=== PATIENT | female | born 1970 | race African-American/Black ===

== ENCOUNTER → 2016-11-25 | Outpatient (CLI) | payer OTHER ==
--- NOTE | 2016-11-25 11:15 | WOMENS IMAGING REPORT ---
EXAM DESCRIPTION: 3D SCREENING MAMMO BILAT COMPLETED DATE/TIME: 11/25/2016 10:47 am REASON FOR STUDY: SCREENING MAMMO Z12.31 ENCNTR SCREEN MAMMOGRAM FOR MALIGNANT NEOPLASM OF YOANA COMPARISON: 2010, 2015 TECHNIQUE: Standard craniocaudal and mediolateral oblique views of each breast recorded using digita l acquisition and breast tomosynthesis. LIMITATIONS: None. FINDINGS: No masses, calcifications or architectural distortion. No areas of suspicion. Read with the assistance of CAD. .[facility] - R2 Cenova Version 1.3 .[facility] - R2 Cenova Version 1.3 .[facility] - R2 Cenova Version 2.4 .[facility] [place] R2 Cenova Version 2.4 .[facility] - R2 Shaker Out Version 9.2 IMPRESSION: NORMAL MAMMOGRAM. BIRADS 1. BREAST DENSITY: b. There are scattered areas of fibroglandular density. BIRAD: 1 NEGATIVE RECOMMENDATION: ROUTINE SCREENING COMMENT: The patient has been notified of the results by letter per SA requirements. Additional no tification policies are in place for contacting patient with suspicious or incomplete findings. Quality ID #[id number]: The [employer] recommends an annual screening mammogram for women aged 40 years or over. This facility utilizes a reminder system to ensure that all patients receive reminder letters, and/or direct phone calls for appointments. This includes reminders for routine scr eening mammograms, diagnostic mammograms, or other Breast Imaging Interventions when appropriate. Th is patient will be placed in the appropriate reminder system. The [employer] (ACR) has developed recommendations for screening MRI of the breast s in certain patient populations, to be used in conjunction with mammography. Breast MRI surveillanc e may be appropriate for women with more than 20% lifetime risk of developing breast cancer as deter mined by genetic testing, significant family history of the disease, or history of mantle radiation f or Hodgkins Disease. ACR Practice Guidelines 2008. DBT Technology DBT is a type of tomographic mammography. With conventional mammography, overlapping breast tissue ma y make lesions difficult to detect, even with good compression. DBT uses an x-ray tube that rotates a round the breast, taking images at different angles. These images are then combined to create thin sl ices of the breast that the radiologist can view as a 3D reconstruction. The [facility]attle unit can perform full-field digital mammograms (2D imaging); or DBT (3D imaging); or both, in a combination mode that quickly performs both the mammogram and the tomosynthesis scan while the breast is still compressed. PQRS 6045F: Fluoroscopic imaging is not utilized for breast tomosynthesis. TECHNICAL DOCUMENTATION: FINDING NUMBER: (1) ASSESSMENT: (1) JOB ID: [id number] [employer]- All Rights Reserved
== END ==
LOC: WI 10:33
PROVIDERS: ATTEND Family Medicine
DX: Z12.31 Encounter for screening mammogram for malignant neoplasm of breast (principal)
CPT/HCPCS: 77063; G0202; 77067

== ENCOUNTER → 2017-02-24 | Outpatient (CLI) | payer OTHER ==
[2017-02-24 10:14] LABS: ALANINE AMINOTRANSFERASE 37 U/L (9-52); ALBUMIN 3.6 g/dL (3.5-5.0); ALKALINE PHOSPHATASE 64 U/L (38-126); ASPARTATE AMINO TRANSFERASE 26 U/L (14-36); BILIRUBIN,DIRECT 0.1 mg/dL (0.0-0.4); BILIRUBIN,TOTAL 0.3 mg/dL (0.2-1.3); TOTAL PROTEIN 6.8 g/dL (6.3-8.2)
== END ==
LOC: OD 08:50
PROVIDERS: ATTEND Internal Medicine Gastroenterology
DX: K74.3 Primary biliary cirrhosis (principal)
CPT/HCPCS: 36415; 80076

== ENCOUNTER → 2017-03-05 | Outpatient (CLI) | payer OTHER ==
--- NOTE | 2017-03-05 09:39 | RADIOLOGY REPORT (SQ) ---
EXAM DESCRIPTION: U/S ABDOMEN LIMITED W/O DOP COMPLETED DATE/TIME: 03/05/2017 9:01 am REASON FOR STUDY: PRIMARY BILIARY CIRRHOSIS (K74.3) K74.3 PRIMARY BILIARY CIRRHOSIS COMPARISON: September 2015 TECHNIQUE: Dynamic and static grayscale images acquired of the abdomen and recorded on PACS. Additio nal selected color Doppler and spectral images recorded. LIMITATIONS: None. FINDINGS: PANCREAS: No masses. Visualized pancreatic duct normal caliber. LIVER: No masses. Echotexture normal. LIVER VASCULATURE: Normal directional flow of the main portal vein and hepatic veins. GALLBLADDER: No stones. Normal wall thickness. No pericholecystic fluid. ULTRASOUND-DETECTED SUTTON'S SIGN: Negative. INTRAHEPATIC DUCTS AND COMMON DUCT: Normal blood flow is identified in the portal vein. INFERIOR VENA CAVA: Normal flow. AORTA: No aneurysm. RIGHT KIDNEY: 10.3 cm in length. Normal echogenicity. No solid or suspicious masses. No hydronephros is. No calcifications. PERITONEAL AND RIGHT PLEURAL SPACE: No ascites or effusions. OTHER: No other significant findings. IMPRESSION: NORMAL RIGHT UPPER QUADRANT ULTRASOUND. TECHNICAL DOCUMENTATION: JOB ID: [id number] [employer]- All Rights Reserved
== END ==
LOC: RAD 08:25
PROVIDERS: ATTEND Internal Medicine Gastroenterology
DX: K74.3 Primary biliary cirrhosis (principal)
CPT/HCPCS: 76705

== ENCOUNTER 2017-11-01 08:49 | Inpatient (IN) | payer OTHER ==
--- NOTE | 2017-11-01 09:36 | ER Document Report ---
ED Medical Screen (RME) - General Chief Complaint: Shortness Of Breath Stated Complaint: DIFFICULTY BREATHING Time Seen by Provider: 11/01/17 09:34 Notes: 47-year-old female patient to the emergency department chief complaint shortness of breath. Patient states that she is predisposed to blood clots. Does not smoke. Wears a CPAP at night. I have greeted and performed a rapid initial assessment of this patient. A comprehensive ED assessment and evaluation of the patient, analysis of test results and completion of the medical decision making process will be conducted by additional ED providers. TRAVEL OUTSIDE OF THE [place] IN LAST 30 DAYS: No - Related Data Allergies/Adverse Reactions: No Known Allergies Allergy (Verified 11/01/17 08:50) Past Medical History Past Surgical History: Reports: Hx Section - x2 - Immunizations Hx Diphtheria, Pertussis, Tetanus Vaccination: Yes Physical Exam - Vital signs Vitals: Temp Pulse Resp BP Pulse Ox 97.6 F 90 32 H 128/73 H 82 L 11/01/17 08:56 11/01/17 08:56 11/01/17 08:56 11/01/17 08:56 11/01/17 08:56 Interpretation: Tachycardic - Respiratory Respiratory status: No respiratory distress Chest status: Nontender Breath sounds: Normal Chest palpation: Normal - Cardiovascular Rhythm: Tachycardia Heart sounds: Normal auscultation Murmur: No Course - Vital Signs Vital signs: Temp Pulse Resp BP Pulse Ox 97.6 F 90 32 H 128/73 H 82 L 11/01/17 08:56 11/01/17 08:56 11/01/17 08:56 11/01/17 08:56 11/01/17 08:56 - Laboratory Result Diagrams: 11/01/17 09:26 11/01/17 09:26 Doctor's Discharge - Discharge Referrals: HOMER JAMES MD [Primary Care Provider] - Follow up as needed
[2017-11-01 09:45] LABS: ABSOLUTE LYMPHOCYTES (AUTO) 0.8 10^3/uL (0.5-4.7); ABSOLUTE MONOCYTES (AUTO) 0.6 10^3/uL (0.1-1.4); ABSOLUTE NEUT (AUTO) 3.7 10^3/uL (1.7-8.2); BASOPHILS % (AUTO) 0.8 % (0-2); EOSINOPHILS % (AUTO) 0.1 % (0-6); HEMATOCRIT 28.4 % (36.0-47.0); HEMOGLOBIN 9.2 g/dL (12.0-15.5); LYMPHOCYTES % (AUTO) 15.4 % (13-45); MEAN CORPUSCULAR HEMOGLOBIN 24.9 pg (27.0-33.4); MEAN CORPUSCULAR HGB CONC 32.4 g/dL (32.0-36.0); MEAN CORPUSCULAR VOLUME 77 fl (80-97); MONOCYTES % (AUTO) 11.4 % (3-13); PLATELET COUNT 136 10^3/uL (150-450); RED CELL DISTRIBUTION WIDTH 15.5 % (11.5-14.0); SEGMENTED NEUTROPHILS % (AUTO) 72.3 % (42-78); TOTAL CELLS COUNTED % (AUTO) 100 %; VENOUS BLOOD BASE EXCESS -3.5 mmol/L; VENOUS BLOOD HCO3 21.5 mmol/L (20-32); VENOUS BLOOD PCO2 38.3 mmHg (35-63); VENOUS BLOOD PH 7.37 (7.30-7.42); WHITE BLOOD COUNT 5.1 10^3/uL (4.0-10.5)
--- NOTE | 2017-11-01 09:59 | ER Document Report ---
ED General - General Chief Complaint: Shortness Of Breath Stated Complaint: DIFFICULTY BREATHING Time Seen by Provider: 11/01/17 09:34 TRAVEL OUTSIDE OF THE [place] IN LAST 30 DAYS: No - HPI Notes: 47-year-old female with comp gated medical history including mixed connective tissue disease, primary biliary cirrhosis who presents with difficulty in breathing and hypoxemia. Patient describes several days of increasingly severe dyspnea, especially with exertion as well as cough, nonproductive. She had transient "cramp" in her right medial thigh. Indicates that she is " predisposed blood clots but cannot specify a specific disease. She denies any associated chest pain, no fever. No unplanned weight loss, non-smoker. Gradual onset. Nonradiating. No other modifying factors, no other associated symptoms, no other provocative or palliative factors. - Related Data Allergies/Adverse Reactions: No Known Allergies Allergy (Verified 11/01/17 08:50) Past Medical History - General Information source: Patient - Social History Smoking Status: Never Smoker Drug Abuse: None - Medical History Notes: Includes primary biliary cirrhosis, mixed connective tissue disease, otherwise has reviewed nursing notes Past Surgical History: Reports: Hx Section - x2 - Immunizations Hx Diphtheria, Pertussis, Tetanus Vaccination: Yes Review of Systems - Review of Systems Notes: Review of systems as in history of present illness, otherwise no significant headache, chest pain, abdominal pain. Physical Exam - Vital signs Vitals: Temp Pulse Resp BP Pulse Ox 97.6 F 90 32 H 128/73 H 82 L 11/01/17 08:56 11/01/17 08:56 11/01/17 08:56 11/01/17 08:56 11/01/17 08:56 - Notes Notes: General: Well developed . HEENT: Normocephalic, atraumatic. Pupils equal round reactive to light. No JVD. Chest: No trauma. Respiratory: Good air exchange, coarse but normal excursion. No crackles. Cardiac: Regular rhythm. No murmurs or gallops. Abdomen: Soft, benign. Nondistended. Nontender. Back: No asymmetry or gross abnormality. Motor: Grossly normal power and tone. Neurologic: Alert, nonfocal. Cranial nerves II-12 are intact. Sensation intact. Vascular: Well perfused. Normal peripheral pulses. Skin: No petechiae or purpura. Course - Re-evaluation Re-evalutation: 11/01/17 09:59 47-year-old female with the after mentioned symptoms. Consider underlying pneumonia, pulmonary embolism, pneumothorax, less likely heart failure is anginal equivalent. Will proceed with laboratory evaluation, EKG, x-ray given d -dimer evaluation. Reassess. 11/01/17 13:12 Labs reviewed, CBC unremarkable with the exception of chronic anemia. Platelets show mild to moderate thrombocytopenia. Chemistries unremarkable. D- dimer markedly elevated. Patient's chest x-ray is obtained and read right middle lobe infiltrate. However, patient has really minimal dry cough, and does have associated symptoms that suggest the possibility of venous thromboembolic disease. In light of this, I elected proceed with CT imaging. CTAs discussed with the radiologist there is extensive bilateral pulmonary embolism. No evidence of RV strain. Patient remains with a oxygen requirement. Case discussed with the primary care physician, Dr. Schuster. Dr. Schuster is requested initiation of Eliquis which the patient has been given. Otherwise remains hemodynamically stable in the emergency department. - Vital Signs Vital signs: Temp Pulse Resp BP Pulse Ox 97.6 F 90 29 H 123/73 92 11/01/17 08:56 11/01/17 08:56 11/01/17 12:00 11/01/17 11:01 11/01/17 12:00 - Laboratory Result Diagrams: 11/01/17 09:26 11/01/17 09:26 Laboratory results interpreted by me: 11/01/17 11/01/17 11/01/17 09:26 09:26 09:26 RBC 3.70 L Hgb 9.2 L Hct 28.4 L MCV 77 L MCH 24.9 L RDW 15.5 H Plt Count 136 L D-Dimer Carbon Dioxide 21 L AST 37 H Ammonia < 8.7 L 11/01/17 09:26 RBC Hgb Hct MCV MCH RDW Plt Count D-Dimer 7.32 H Carbon Dioxide AST Ammonia Discharge - Discharge Clinical Impression: Pulmonary embolism Qualifiers: Pulmonary embolism type: other Chronicity: acute Acute cor pulmonale presence: without acute cor pulmonale Qualified Code(s): I26.99 - Other pulmonary embolism without acute cor pulmonale Condition: Good Disposition: ADMITTED INPATIENT Admitting Provider: [facility] Admitted: Telemetry Referrals: HOMER JAMES MD [ACTIVE STAFF] - Follow up as needed
[2017-11-01 10:11] LABS: ALANINE AMINOTRANSFERASE 32 U/L (9-52); ALBUMIN 3.6 g/dL (3.5-5.0); ALKALINE PHOSPHATASE 94 U/L (38-126); ANION GAP 14 (5-19); ASPARTATE AMINO TRANSFERASE 37 U/L (14-36); BILIRUBIN,DIRECT 0.1 mg/dL (0.0-0.4); BILIRUBIN,TOTAL 0.2 mg/dL (0.2-1.3); BLOOD UREA NITROGEN 11 mg/dL (7-20); CALCIUM 8.6 mg/dL (8.4-10.2); CARBON DIOXIDE 21 mmol/L (22-30); CHLORIDE 105 mmol/L (98-107); CREATINE KINASE 128 U/L (30-135); GLUCOSE 105 mg/dL (75-110); POTASSIUM 3.8 mmol/L (3.6-5.0); SODIUM 139.7 mmol/L (137-145); TOTAL PROTEIN 7.9 g/dL (6.3-8.2)
[2017-11-01 10:23] LABS: CREATINE KINASE MB 1.69 ng/mL (<4.55)
--- NOTE | 2017-11-01 10:28 | RADIOLOGY REPORT (SQ) ---
EXAM DESCRIPTION: CHEST SINGLE VIEW COMPLETED DATE/TIME: 11/01/2017 10:04 am REASON FOR STUDY: sob COMPARISON: 03/17/2012. EXAM PARAMETERS: NUMBER OF VIEWS: One view. TECHNIQUE: Single frontal radiographic view of the chest acquired. RADIATION DOSE: NA LIMITATIONS: None. FINDINGS: LUNGS AND PLEURA: Airspace consolidation right upper lobe. Otherwise, lung james clear. MEDIASTINUM AND HILAR STRUCTURES: No masses. Contour normal. HEART AND VASCULAR STRUCTURES: The heart is normal. The pulmonary vasculature is normal. BONES: No acute findings. HARDWARE: None in the chest. OTHER: No other significant finding. IMPRESSION: Right upper lobe pneumonia. TECHNICAL DOCUMENTATION: JOB ID: [id number] SC-69 2010 [employer]- All Rights Reserved Reading location - IP/workstation name: [email or web address]
[2017-11-01 10:31] LABS: TROPONIN I 0.049 ng/mL
--- NOTE | 2017-11-01 10:46 | EKG REPORT ---
SEVERITY:- BORDERLINE ECG - SINUS RHYTHM BORDERLINE T WAVE ABNORMALITIES : Confirmed by: Gamaliel Mathews 01-Nov-2017 10:46:10
--- NOTE | 2017-11-01 12:26 | RADIOLOGY REPORT (SQ) ---
EXAM DESCRIPTION: CTA CHEST COMPLETED DATE/TIME: 11/01/2017 11:42 am REASON FOR STUDY: Eval for PE COMPARISON: None. TECHNIQUE: CT scan of the chest performed using helical scanning technique with dynamic intravenous contrast injection. Images reviewed with lung, soft tissue and bone windows. Reconstructed coronal and sagittal MPR images reviewed. Additional 3 dimensional post-processing performed to develop Maximal Intensity Projection images (LA P). All images stored on PACS. All CT scanners at this facility use dose modulation, iterative reconstruction, and/or weight based d osing when appropriate to reduce radiation dose to as low as reasonably achievable (ALARA). [facility]: Dose Right [facility]: CareDose [facility]: Dose Right [facility]: Teradose 4D [facility]: Piehole CONTRAST TYPE AND DOSE: contrast/concentration: Isovue 350.00 mg/ml; Total Contrast Delivered: 81.0 ml; Total Saline Delivered: 110.0 ml Contrast bolus optimized for the pulmonary arteries. Not diagnostic for the aorta. RENAL FUNCTION: Creatinine: 0.78 RADIATION DOSE: CT Rad equipment meets quality standard of care and radiation dose reduction techniq ues were employed. CTDIvol: 23.4 - 46.3 mGy. DLP: 830 mGy-cm. . LIMITATIONS: None. FINDINGS: LUNGS AND PLEURA: Extensive consolidation or infarct in the right upper lobe. Consolidati on or infarct right lower lobe. Consolidation medial segment right middle lobe. AORTA AND GREAT VESSELS: No aneurysm. Contrast bolus not optimized for the aorta. HEART: No pericardial effusion. No significant coronary artery calcifications. PULMONARY ARTERIES: Extensive bilateral pulmonary emboli extending from right and left main pulmonary emboli into upper lobe, right middle lobe, and lower lobe vessels. HILAR AND MEDIASTINAL STRUCTURES: There is evidence of small anterior mediastinal, pretracheal nodes. Scattered axillary nodes. HARDWARE: None in the chest. UPPER ABDOMEN: The liver, spleen, adrenals demonstrate no abnormality. THYROID AND OTHER SOFT TISSUES: No abnormality. BONES: Minimal dorsal spondylosis. 3D MIPS: Confirm above findings. IMPRESSION: Extensive bilateral pulmonary emboli. There is evidence of significant consolidation or infarct within the right upper lobe,right lower lobe ,and minimal infiltrate or consolidation right middle lobe. COMMENT: Dr. Pozo given report by phone at 1200 hours. Quality ID # [id number]: Final reports with documentation of one or more dose reduction techniques (e.g., Au tomated exposure control, adjustment of the mA and/or kV according to patient size, use of iterative reconstruction technique) TECHNICAL DOCUMENTATION: JOB ID: [id number] SC-69 2010 [employer]- All Rights Reserved Reading location - IP/workstation name: [email or web address]
[2017-11-01] MEDS ORDERED: APIXABAN 5 MG TABLET PO ONE (12:54)
[2017-11-01 13:21] LABS: INTERNATIONAL RATION (INR) 0.93; PROTHROMBIN TIME 12.9 SEC (11.4-15.4)
[2017-11-01 16:00] LABS: TROPONIN I 0.079 ng/mL
--- NOTE | 2017-11-01 20:11 | PDOC H&P ---
History of Present Illness Admission Date/PCP: 11/01/17 14:11 MILA CAICEDO MD Patient complains of: 1w pandey History of Present Illness: ZANE PEREZ is a 47 year old female with primary biliary cirrhosis, mixed connective tissue disease, sicca, itp, protein C&S deficiencies, membranous nephritis, and nephrosis with 1w progressive pandey. In ER Ddimer & cta + for multiple pe. Past Medical History Cardiac Medical History: Reports: Hyperlipidema Pulmonary Medical History: Reports: Sleep Apnea EENT Medical History: Reports: Nose - rhinitis Neurological Medical History: Reports: Migraine Endocrine Medical History: Reports: None Renal/ Medical History: Reports: Chronic Kidney Disease Malignancy Medical History: Reports: None GI Medical History: Reports: Cirrhosis, Gastroesophageal Reflux Disease Musculoskeltal Medical History: Reports: Arthritis - low back Psychiatric Medical History: Reports: Depression Traumatic Medical History: Reports: None Hematology: Reports: Anemia Infectious Medical History: Reports: None Past Surgical History Past Surgical History: Reports: Section - x2 Social History Information Source: Office Lives with: Family Smoking Status: Never Smoker Frequency of Alcohol Use: None Hx Recreational Drug Use: No Drugs: None Hx Prescription Drug Abuse: No - Advance Directive Resuscitation Status: Full Code Family History Family History: Arthritis, DM, Hypertension Parental Family History Reviewed: Yes Children Family History Reviewed: Yes Sibling(s) Family History Reviewed.: Yes Medication/Allergy Allergies/Adverse Reactions: No Known Allergies Allergy (Verified 11/01/17 08:50) Review of Systems Constitutional: ABSENT: fever(s), headache(s), weight loss Nose, Mouth, and Throat: ABSENT: headache(s), sore throat Cardiovascular: PRESENT: dyspnea on exertion. ABSENT: chest pain, orthropnea Respiratory: PRESENT: cough - today only minimal, dyspnea. ABSENT: hemoptysis Gastrointestinal: PRESENT: hematochezia. ABSENT: abdominal pain, constipation, diarrhea, heartburn, vomiting Genitourinary: ABSENT: dysuria, hematuria Musculoskeletal: PRESENT: back pain Integumentary: ABSENT: rash Physical Exam Vital Signs: Temp Pulse Resp BP Pulse Ox 98.2 F 90 20 119/75 93 11/01/17 16:05 11/01/17 16:05 11/01/17 16:05 11/01/17 16:05 11/01/17 16:05 General appearance: PRESENT: no acute distress, obese Mouth exam: PRESENT: moist, neck supple, tongue midline Neck exam: ABSENT: lymphadenopathy, tenderness, thyromegaly, tracheal deviation Respiratory exam: PRESENT: clear to auscultation shaila Cardiovascular exam: ABSENT: diastolic murmur, irregular rhythm, systolic murmur GI/Abdominal exam: ABSENT: mass, organolmegaly, tenderness Extremities exam: ABSENT: pedal edema Neurological exam: PRESENT: oriented to situation Psychiatric exam: PRESENT: appropriate affect Results Laboratory Results: Abnormal - 24 hr 11/01/17 11/01/17 11/01/17 09:26 09:26 09:26 RBC 3.70 L Hgb 9.2 L Hct 28.4 L MCV 77 L MCH 24.9 L RDW 15.5 H Plt Count 136 L D-Dimer Carbon Dioxide 21 L AST 37 H Ammonia < 8.7 L NT-Pro-B Natriuret Pep 11/01/17 11/01/17 09:26 14:59 RBC Hgb Hct MCV MCH RDW Plt Count D-Dimer 7.32 H Carbon Dioxide AST Ammonia NT-Pro-B Natriuret Pep 905 H Impressions: Chest X-Ray 11/01/17 09:35 IMPRESSION: Right upper lobe pneumonia. Chest/Abdomen CTA 11/01/17 11:00 IMPRESSION: Extensive bilateral pulmonary emboli. There is evidence of significant consolidation or infarct within the right upper lobe,right lower lobe ,and minimal infiltrate or consolidation right middle lobe. Assessment & Plan - Diagnosis (1) Other pulmonary embolism without acute cor pulmonale Qualifiers: Chronicity: acute Qualified Code(s): I26.99 - Other pulmonary embolism without acute cor pulmonale Is this a current diagnosis for this admission?: Yes Plan: eliquis doppler (2) Migraine without aura and without status migrainosus, not intractable Is this a current diagnosis for this admission?: Yes (3) Obstructive sleep apnea Is this a current diagnosis for this admission?: Yes Plan: cpap (4) Hemorrhoids Qualifiers: Hemorrhoid type: residual hemorrhoidal skin tags Qualified Code(s): K64.4 - Residual hemorrhoidal skin tags; I84.6 - Residual hemorrhoidal skin tags Is this a current diagnosis for this admission?: Yes Plan: watch for recurrent bleeding. (5) Gastro-esophageal reflux disease without esophagitis Is this a current diagnosis for this admission?: Yes (6) Primary biliary cirrhosis Is this a current diagnosis for this admission?: Yes Plan: Dr Solomon gave ursodiol in past. (8) Membranous nephrosis Is this a current diagnosis for this admission?: Yes Plan: improved. [employer] told see me last year (9) Intramural leiomyoma of uterus Is this a current diagnosis for this admission?: Yes Plan: periods already heavy with clots. LMP 2d ago. (10) Mixed connective tissue disease Is this a current diagnosis for this admission?: Yes (11) Sicca syndrome Is this a current diagnosis for this admission?: Yes (12) Immune thrombocytopenic purpura Is this a current diagnosis for this admission?: Yes Plan: follow platelets. Avoid heparin. (13) Deficiency, protein C Is this a current diagnosis for this admission?: Yes (14) Anemia in other chronic diseases classified elsewhere Is this a current diagnosis for this admission?: Yes Plan: iron studies - Inpatient Certification Based on my medical assessment, after consideration of the patient's comorbidities, presenting symptoms, or acuity I expect that the services needed warrant INPATIENT care.: Yes Medical Necessity: Significant Comorbidiites Make Outpatient Treatment Too Risky , Need Close Monitoring Due to Risk of Patient Decompensation, Need For Continuous Telemetry Monitoring, Risk of Complication if Not Cared For in Hospital, Risk of Diagnosis Which Will Require Inpatient Eval/Care/Monitoring
[2017-11-01 20:57] LABS: ABSOLUTE RETICS # 0.085 10^6/uL (0.028-0.122); RETICULOCYTE COUNT (AUTO) 2.27 % (0.66-2.85)
[2017-11-01] MEDS: APIXABAN 5 MG TABLET PO SCH (22:03)
[2017-11-02] MEDS ORDERED: IRON SUCROSE COMPLEX INJ/PF 100 MG/5 ML SDV IV ONE (06:02)
--- NOTE | 2017-11-02 07:06 | PDOC PROGRESS REPORT ---
Subjective Progress Note for:: 11/02/17 Subjective:: less dyspnea. Off iron & ursodiol. Reason For Visit: PULMONARY EMBOLISM Physical Exam Vital Signs: Temp Pulse Resp BP Pulse Ox 97.8 F 87 22 H 122/65 98 11/02/17 03:02 11/02/17 03:02 11/02/17 03:02 11/02/17 03:02 11/02/17 03:02 Intake & Output 10/31/17 11/01/17 11/02/17 07:59 07:59 07:59 Weight 233 lb 0.458 oz General appearance: PRESENT: no acute distress Respiratory exam: PRESENT: clear to auscultation shaila Cardiovascular exam: ABSENT: diastolic murmur, irregular rhythm, systolic murmur GI/Abdominal exam: ABSENT: mass, organolmegaly, tenderness Extremities exam: ABSENT: pedal edema Neurological exam: PRESENT: oriented to situation Psychiatric exam: PRESENT: appropriate affect Results Laboratory Results: 11/01/17 14:59 Iron 12.0 L TIBC 404 % Saturation 3 Ferritin 10.10 Vitamin B12 710.0 Folate 18.30 11/01/17 14:59 Troponin I 0.079 NT-Pro-B Natriuret Pep 905 H Impressions: Chest X-Ray 11/01/17 09:35 IMPRESSION: Right upper lobe pneumonia. Chest/Abdomen CTA 11/01/17 11:00 IMPRESSION: Extensive bilateral pulmonary emboli. There is evidence of significant consolidation or infarct within the right upper lobe,right lower lobe ,and minimal infiltrate or consolidation right middle lobe. Assessment & Plan - Diagnosis (1) Other pulmonary embolism without acute cor pulmonale Qualifiers: Chronicity: acute Qualified Code(s): I26.99 - Other pulmonary embolism without acute cor pulmonale Is this a current diagnosis for this admission?: Yes Plan: eliquis 10bid 1w then 5bid. Education. (2) Migraine without aura and without status migrainosus, not intractable Is this a current diagnosis for this admission?: Yes (3) Obstructive sleep apnea Is this a current diagnosis for this admission?: Yes Plan: slept with cpap (4) Hemorrhoids Qualifiers: Hemorrhoid type: residual hemorrhoidal skin tags Qualified Code(s): K64.4 - Residual hemorrhoidal skin tags; I84.6 - Residual hemorrhoidal skin tags Is this a current diagnosis for this admission?: Yes Plan: told to watch for bleeding (5) Gastro-esophageal reflux disease without esophagitis Is this a current diagnosis for this admission?: Yes Plan: prevacid (6) Primary biliary cirrhosis Is this a current diagnosis for this admission?: Yes Plan: ursodiol (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 (8) Membranous nephrosis Is this a current diagnosis for this admission?: Yes (9) Intramural leiomyoma of uterus Is this a current diagnosis for this admission?: Yes Plan: pray for menopause. Age47. 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 Underlies thrombophillia (14) Anemia in other chronic diseases classified elsewhere Is this a current diagnosis for this admission?: Yes Plan: venofer - Inpatient Certification Medical Necessity: Significant Comorbidiites Make Outpatient Treatment Too Risky , Need Close Monitoring Due to Risk of Patient Decompensation, Need For Continuous Telemetry Monitoring, Risk of Complication if Not Cared For in Hospital, Risk of Diagnosis Which Will Require Inpatient Eval/Care/Monitoring
[2017-11-02] MEDS ORDERED: IRON SUCROSE COMPLEX 500 MG in NORMAL SALINE 250 ML IV ONE (09:00)
[2017-11-02] MEDS: FERROUS SULFATE 325 MG TABLET PO SCH (10:19)
[2017-11-02] MEDS: URSODIOL 300 MG CAPSULE PO SCH ×2 (10:20→17:32)
[2017-11-02] MEDS: APIXABAN 5 MG TABLET PO SCH ×2 (10:20→22:38)
--- NOTE | 2017-11-03 07:42 | PDOC PROGRESS REPORT ---
Subjective Progress Note for:: 11/03/17 Subjective:: less dyspnea but still on walking to bathroom. Period heavier than usual. Reason For Visit: PULMONARY EMBOLISM Physical Exam Vital Signs: Temp Pulse Resp BP Pulse Ox 98.4 F 91 16 100/66 99 11/03/17 03:59 11/03/17 03:59 11/03/17 03:59 11/03/17 03:59 11/03/17 03:59 Intake & Output 11/01/17 11/02/17 11/03/17 07:59 07:59 07:59 Intake Total 1150 Balance 1150 Weight 233 lb 0.458 oz 229 lb 8.019 oz General appearance: PRESENT: no acute distress Respiratory exam: PRESENT: clear to auscultation shaila Cardiovascular exam: PRESENT: systolic murmur. ABSENT: diastolic murmur, irregular rhythm Murmur grade: 2 GI/Abdominal exam: PRESENT: organolmegaly - suprapubic 7cm. ABSENT: tenderness Extremities exam: ABSENT: pedal edema Neurological exam: PRESENT: oriented to situation Psychiatric exam: PRESENT: appropriate affect Results Laboratory Results: 11/01/17 14:59 Troponin I 0.079 NT-Pro-B Natriuret Pep 905 H Impressions: Chest X-Ray 11/01/17 09:35 IMPRESSION: Right upper lobe pneumonia. Chest/Abdomen CTA 11/01/17 11:00 IMPRESSION: Extensive bilateral pulmonary emboli. There is evidence of significant consolidation or infarct within the right upper lobe,right lower lobe ,and minimal infiltrate or consolidation right middle lobe. Assessment & Plan - Diagnosis (1) Other pulmonary embolism without acute cor pulmonale Qualifiers: Chronicity: acute Qualified Code(s): I26.99 - Other pulmonary embolism without acute cor pulmonale Is this a current diagnosis for this admission?: Yes Plan: FIO2 down to 4L: sat99. Consult Dr Stafford. (2) Migraine without aura and without status migrainosus, not intractable Is this a current diagnosis for this admission?: Yes (3) Obstructive sleep apnea Is this a current diagnosis for this admission?: Yes (4) Hemorrhoids Qualifiers: Hemorrhoid type: residual hemorrhoidal skin tags Qualified Code(s): K64.4 - Residual hemorrhoidal skin tags; I84.6 - Residual hemorrhoidal skin tags Is this a current diagnosis for this admission?: Yes (5) Gastro-esophageal reflux disease without esophagitis Is this a current diagnosis for this admission?: Yes (6) Primary biliary cirrhosis Is this a current diagnosis for this admission?: Yes (7) 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 Is this a current diagnosis for this admission?: Yes (8) Membranous nephrosis Is this a current diagnosis for this admission?: Yes (9) Intramural leiomyoma of uterus Is this a current diagnosis for this admission?: Yes (10) Mixed connective tissue disease Is this a current diagnosis for this admission?: Yes (11) Sicca syndrome Is this a current diagnosis for this admission?: Yes (12) Immune thrombocytopenic purpura Is this a current diagnosis for this admission?: Yes (13) Deficiency, protein C Is this a current diagnosis for this admission?: Yes (14) Anemia in other chronic diseases classified elsewhere Is this a current diagnosis for this admission?: Yes - Inpatient Certification Medical Necessity: Significant Comorbidiites Make Outpatient Treatment Too Risky , Need Close Monitoring Due to Risk of Patient Decompensation, Need For Continuous Telemetry Monitoring, Risk of Complication if Not Cared For in Hospital, Risk of Diagnosis Which Will Require Inpatient Eval/Care/Monitoring
[2017-11-03] MEDS: APIXABAN 5 MG TABLET PO SCH ×2 (09:24→22:05)
[2017-11-03] MEDS: FERROUS SULFATE 325 MG TABLET PO SCH (09:24)
[2017-11-03] MEDS: URSODIOL 300 MG CAPSULE PO SCH ×2 (09:27→18:37)
--- NOTE | 2017-11-03 13:21 | XCELERA REPORT ---
[address] [address] Lower Extremity Venous Evaluation Name: ZANE PEREZ V Age: 47 yrs Gender: Female : 1970 Patient Status: Inpatient Patient Location: [address] [place], [place] [address]A Study Date: 11/03/2017 10:20 AM Procedure: Color flow and duplex imaging bilaterally of the veins of the lower extremities as well as the Common Femoral veins. Reason For Study: pe Ordering Physician: MILA CAICEDO Performed By: Tawana Saldana Right Sided Venous Evaluation Abnormal vessel filling wall to wall, no compression or augmentation no Colour flow in the Popliteal vein. Echogenic content. Otherwise normal . Left Sided Venous Evaluation Normal vessel filling wall to wall, compression and augmentation as well as Colour flow down to the infrageniculate veins. Interpretation Summary Chronic DVT in the right Popliteal vein. In this patient on Elaquis for Pulmonary embolism. : MILA CAICEDO [place]
--- NOTE | 2017-11-04 07:01 | PDOC PROGRESS REPORT ---
Subjective Progress Note for:: 11/04/17 Subjective:: less pandey Reason For Visit: PULMONARY EMBOLISM Physical Exam Vital Signs: Temp Pulse Resp BP Pulse Ox 98.9 F 94 20 115/69 100 11/04/17 03:32 11/04/17 03:32 11/04/17 03:32 11/04/17 03:32 11/04/17 03:32 Intake & Output 11/02/17 11/03/17 11/04/17 07:59 07:59 07:59 Intake Total 1150 2760 Balance 1150 2760 Weight 233 lb 0.458 oz 229 lb 8.019 oz 236 lb 5.369 oz General appearance: PRESENT: no acute distress Respiratory exam: PRESENT: clear to auscultation shaila Cardiovascular exam: ABSENT: diastolic murmur, irregular rhythm, systolic murmur Murmur grade: 2 GI/Abdominal exam: ABSENT: mass, organolmegaly, tenderness Extremities exam: ABSENT: calf tenderness, pedal edema Neurological exam: PRESENT: oriented to situation Psychiatric exam: PRESENT: appropriate affect Results Laboratory Results: 11/01/17 14:59 Troponin I 0.079 NT-Pro-B Natriuret Pep 905 H Impressions: Chest X-Ray 11/01/17 09:35 IMPRESSION: Right upper lobe pneumonia. Chest/Abdomen CTA 11/01/17 11:00 IMPRESSION: Extensive bilateral pulmonary emboli. There is evidence of significant consolidation or infarct within the right upper lobe,right lower lobe ,and minimal infiltrate or consolidation right middle lobe. Assessment & Plan - Diagnosis (1) Other pulmonary embolism without acute cor pulmonale Qualifiers: Chronicity: acute Qualified Code(s): I26.99 - Other pulmonary embolism without acute cor pulmonale Is this a current diagnosis for this admission?: Yes Plan: 4L [id number]. Home when oxygen weaned. (2) Chronic deep vein thrombosis of right popliteal vein Is this a current diagnosis for this admission?: Yes Plan: doppler + (3) Anemia in other chronic diseases classified elsewhere Is this a current diagnosis for this admission?: Yes (4) Migraine without aura and without status migrainosus, not intractable Is this a current diagnosis for this admission?: Yes (5) Obstructive sleep apnea Is this a current diagnosis for this admission?: Yes (6) Hemorrhoids Qualifiers: Hemorrhoid type: residual hemorrhoidal skin tags Qualified Code(s): K64.4 - Residual hemorrhoidal skin tags; I84.6 - Residual hemorrhoidal skin tags Is this a current diagnosis for this admission?: Yes (7) Gastro-esophageal reflux disease without esophagitis Is this a current diagnosis for this admission?: Yes (8) Primary biliary cirrhosis Is this a current diagnosis for this admission?: Yes (9) 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
[2017-11-04] MEDS: APIXABAN 5 MG TABLET PO SCH ×2 (11:17→21:27)
[2017-11-04] MEDS: URSODIOL 300 MG CAPSULE PO SCH ×2 (11:17→18:10)
[2017-11-04] MEDS: FERROUS SULFATE 325 MG TABLET PO SCH (11:18)
--- NOTE | 2017-11-04 14:00 | CONSULTATION REPORT E ---
Consultation Report NAME: ZANE PEREZ : 1970 AGE: 47Y DATE: 11/04/2017 324 A TO: VIDYA BRAR M.D. FROM: MILA SCHUSTER M.D. Requesting Physician Patient referred by Dr. Schuster. REASON FOR REFERRAL: Pulmonary embolism, anemia. HISTORY OF PRESENT ILLNESS: The patient is a 47-year-old who I see as an outpatient. She was last seen February of 2017, and during that visit, she was doing well. Her hemoglobin was 12.1, her platelet count was 300, and her serum ferritin was 110. She was supposed to return for followup in about a year. She has recently been doing a lot better. She tells me that she was exercising and lifting weight and was doing well at home up until a few days prior to admission into the hospital she noticed some pain in her lower extremity and sudden onset shortness of breath. She was seen in the emergency room and diagnosed with pulmonary embolism. She has been started on Eliquis and she tells me she is doing a lot better. Her CT of the chest done on November 01 had shown extensive bilateral pulmonary emboli. She had a chest x-ray that suggested a right upper lobe pneumonia. Since admission, she has been doing a lot better. PAST MEDICAL HISTORY: Includes a history of: 1. Primary biliary cirrhosis. 2. Mixed connective tissue disease. 3. She has a history of idiopathic thrombocytopenic purpura. 4. She has protein C and S deficiency. 5. Renal insufficiency, possible nephritis, nephrosis. SOCIAL HISTORY: She does not smoke cigarettes. Has recently improved on her eating habits and has been exercising and has been feeling great. PHYSICAL EXAMINATION: She is a middle-aged woman. She is not acutely ill looking. She was sitting up in bed eating breakfast. She is alert and answers all questions appropriately. LABORATORY: Her labs from November 01: Calcium is 8.6, BUN 11, creatinine 0.7, potassium 3.8, sodium 139.7. She had an elevated D-dimer 7.3. Ferritin was 10, B12 of 710. Chest x-ray November 01: Right upper lobe pneumonia. CTA chest 11/01/2017: Extensive bilateral pulmonary emboli. IMPRESSION AND PLAN: The patient is a 47-year-old with prior underlying multiple medical conditions, including iron deficiency anemia, idiopathic thrombocytopenic purpura. She was seeing a microbiology director for positive PATRICK, history of mixed connective tissue disease with a known protein C and S deficiency, renal insufficiency, presents with pulmonary embolism. I agree with the anticoagulation with Santy. I explained to her that she might need lifelong anticoagulation because of the severity of her pulmonary embolism. Her ferritin in 2017 went up to 110, but her ferritin on this hospitalization was done to 10. I explained that I will see her as an outpatient and repeat her blood work and then decide on if she will need an iron infusion. I will plan on seeing her for followup as an outpatient after she is discharged from the hospital. I thank you for this consultation and allowing me to be part of her care. DICTATING PHYSICIAN: VIDYA BRAR M.D. [id number] PHY#: [id number] ID: [id number] JOB#: [id number] ACCT: [id number] cc:VIDYA BRAR M.D. >
--- NOTE | 2017-11-05 08:07 | PDOC DISCHARGE SUMMARY ---
General - Admit/Disc Date/PCP Admission Date/Primary Care Provider: 11/01/17 14:11 MILA CAICEDO MD Discharge Date: 11/05/17 - Discharge Diagnosis (1) Other pulmonary embolism without acute cor pulmonale Is this a current diagnosis for this admission?: Yes (2) Chronic deep vein thrombosis of right popliteal vein Is this a current diagnosis for this admission?: Yes (3) Anemia in other chronic diseases classified elsewhere Is this a current diagnosis for this admission?: Yes (4) Migraine without aura and without status migrainosus, not intractable Is this a current diagnosis for this admission?: Yes (5) Obstructive sleep apnea Is this a current diagnosis for this admission?: Yes (6) Hemorrhoids Is this a current diagnosis for this admission?: Yes (7) Gastro-esophageal reflux disease without esophagitis Is this a current diagnosis for this admission?: Yes (8) Primary biliary cirrhosis Is this a current diagnosis for this admission?: Yes (9) 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 - Additional Information Resuscitation Status: Full Code Discharge Diet: Regular Discharge Activity: Activity As Tolerated Prescriptions: Apixaban [Eliquis 5 mg Tablet] 10 mg PO Q12 #66 tablet Ferrous Sulfate [Feosol 325 mg Tablet] 325 mg PO DAILY #90 tablet Ursodiol [Actigall 300 mg Capsule] 300 mg PO BID #60 capsule Home Medications: Ergocalciferol (Vitamin D2) [Drisdol 50,000 unit (1.25MG) Capsule] 50,000 unit PO TU@1000 11/02/17 Apixaban [Eliquis 5 mg Tablet] 10 mg PO Q12 #66 tablet 11/05/17 Ferrous Sulfate [Feosol 325 mg Tablet] 325 mg PO DAILY #90 tablet 11/05/17 Ursodiol [Actigall 300 mg Capsule] 300 mg PO BID #60 capsule 11/05/17 History of Present Illness History of Present Illness: ZANE PEREZ is a 47 year old female with primary biliary cirrhosis, mixed connective tissue disease, sicca, itp, protein C&S deficiencies, membranous nephritis, and nephrosis with 1w progressive pandey. In ER Ddimer & cta + for multiple pe. Hospital Course Hospital Course: pandey improved. 21% sat98. Got [id number]. Doppler R dvt. Physical Exam Vital Signs: Temp Pulse Resp BP Pulse Ox 98.6 F 82 18 116/54 L 99 11/05/17 00:23 11/05/17 07:00 11/05/17 00:23 11/05/17 00:23 11/05/17 00:23 Intake & Output 11/04/17 11/05/17 11/06/17 07:59 07:59 07:59 Intake Total 2760 1446 Balance 2760 1446 Weight 236 lb 5.369 oz 234 lb 12.677 oz General appearance: PRESENT: no acute distress Respiratory exam: PRESENT: clear to auscultation shaila Cardiovascular exam: ABSENT: diastolic murmur, irregular rhythm, systolic murmur Murmur grade: 2 GI/Abdominal exam: ABSENT: mass, organolmegaly, tenderness Extremities exam: ABSENT: pedal edema Neurological exam: PRESENT: oriented to situation Psychiatric exam: PRESENT: appropriate affect Results Laboratory Results: Labs- Last Values WBC 5.1 10^3/uL (4.0-10.5) 11/01/17 09:26 RBC 3.70 10^6/uL (3.72-5.28) L 11/01/17 09:26 Hgb 9.2 g/dL (12.0-15.5) L 11/01/17 09:26 Hct 28.4 % (36.0-47.0) L 11/01/17 09:26 MCV 77 fl (80-97) L 11/01/17 09:26 MCH 24.9 pg (27.0-33.4) L 11/01/17 09:26 MCHC 32.4 g/dL (32.0-36.0) 11/01/17 09:26 RDW 15.5 % (11.5-14.0) H 11/01/17 09:26 Plt Count 136 10^3/uL (150-450) L 11/01/17 09: Seg Neutrophils % 72.3 % (42-78) 11/01/17 09: Lymphocytes % 15.4 % (13-45) 11/01/17 09: Monocytes % 11.4 % (3-13) 11/01/17 09: Eosinophils % 0.1 % (0-6) 11/01/17 09: Basophils % 0.8 % (0-2) 11/01/17 09:26 Absolute Neutrophils 3.7 10^3/uL (1.7-8.2) 11/01/17 09: Absolute Lymphocytes 0.8 10^3/uL (0.5-4.7) 11/01/17 09: Absolute Monocytes 0.6 10^3/uL (0.1-1.4) 11/01/17 09: Absolute Eosinophils 0.0 10^3/uL (0.0-0.6) 11/01/17 09: Absolute Basophils 0.0 10^3/uL (0.0-0.2) 11/01/17 09: Retic Count (auto) 2.27 % (0.66-2.85) 11/01/17 09: Absolute Retic 0.085 10^6/uL (0.028-0.122) 11/01/17 09: PT 12.9 SEC (11.4-15.4) 11/01/17 09: INR 0.93 11/01/17 09:26 D-Dimer 7.32 ug/mL (0.00-0.50) H 11/01/17 09:26 VBG pH 7.37 (7.30-7.42) 11/01/17 09:26 VBG pCO2 38.3 mmHg (35-63) 11/01/17 09:26 VBG HCO3 21.5 mmol/L (20-32) 11/01/17 09: VBG Base Excess -3.5 mmol/L 11/01/17 09:26 Sodium 139.7 mmol/L (137-145) 11/01/17 09:26 Potassium 3.8 mmol/L (3.6-5.0) 11/01/17 09:26 Chloride 105 mmol/L (98-107) 11/01/17 09:26 Carbon Dioxide 21 mmol/L (22-30) L 11/01/17 09:26 Anion Gap 14 (5-19) 11/01/17 09:26 BUN 11 mg/dL (7-20) 11/01/17 09:26 Creatinine 0.78 mg/dL (0.52-1.25) 11/01/17 09:26 Est GFR ( Amer) > 60 (>60) 11/01/17 09:26 Est GFR (Non-Af Amer) > 60 (>60) 11/01/17 09:26 Glucose 105 mg/dL (75-110) 11/01/17 09:26 Lactic Acid 1.2 mmol/L (0.7-2.1) 11/01/17 09:26 Calcium 8.6 mg/dL (8.4-10.2) 11/01/17 09:26 Iron 12.0 ug/dL (37-170) L 11/01/17 14:59 TIBC 404 ug/dL (250-450) 11/01/17 14:59 % Saturation 3 % 11/01/17 14:59 Ferritin 10.10 ng/mL (6.2-137.0) 11/01/17 14:59 Total Bilirubin 0.2 mg/dL (0.2-1.3) 11/01/17 09:26 Direct Bilirubin 0.1 mg/dL (0.0-0.4) 11/01/17 09:26 Neonat Total Bilirubin Not Reportable 11/01/17 09:26 Neonat Direct Bilirubin Not Reportable 11/01/17 09:26 Neonat Indirect Bili Not Reportable 11/01/17 09:26 AST 37 U/L (14-36) H 11/01/17 09:26 ALT 32 U/L (9-52) 11/01/17 09:26 Alkaline Phosphatase 94 U/L (38-126) 11/01/17 09:26 Ammonia < 8.7 umol/L (9-33) L 11/01/17 09:26 Creatine Kinase 128 U/L (30-135) 11/01/17 09:26 CK-MB (CK-2) 1.69 ng/mL (<4.55) 11/01/17 09:26 Troponin I 0.079 ng/mL 11/01/17 14:59 NT-Pro-B Natriuret Pep 905 pg/mL (<125) H 11/01/17 14:59 Total Protein 7.9 g/dL (6.3-8.2) 11/01/17 09:26 Albumin 3.6 g/dL (3.5-5.0) 11/01/17 09:26 Vitamin B12 710.0 pg/mL (239-931) 11/01/17 14:59 Folate 18.30 ng/mL (>2.76) 11/01/17 14:59 Impressions: Chest X-Ray 11/01/17 09:35 IMPRESSION: Right upper lobe pneumonia. Chest/Abdomen CTA 11/01/17 11:00 IMPRESSION: Extensive bilateral pulmonary emboli. There is evidence of significant consolidation or infarct within the right upper lobe,right lower lobe ,and minimal infiltrate or consolidation right middle lobe. Qualifiers - * PATIENT BEING DISCHARGED WITH ANY OF THE FOLLOWING DIAGNOSIS: VTE (PE or DVT) VTE patient discharged on overlapping Therapy?: Yes Plan Discharge Plan: home. 1w ov
[2017-11-05] MEDS ORDERED: IRON SUCROSE COMPLEX INJ/PF 100 MG/5 ML SDV IV ONE (08:08)
[2017-11-05] MEDS: FERROUS SULFATE 325 MG TABLET PO SCH (09:50)
[2017-11-05] MEDS: URSODIOL 300 MG CAPSULE PO SCH (09:50)
[2017-11-05] MEDS: APIXABAN 5 MG TABLET PO SCH (09:50)
[2017-11-05] MEDS ORDERED: IRON SUCROSE COMPLEX 500 MG in NORMAL SALINE 250 ML IV ONE (10:00)
[2017-11-05 12:31] VITALS: BP 128/67
== END 2017-11-05 15:49 | disposition home or self-care (01) | DRG 175 ==
LOC: ER 08:49 → EH 14:11 → 3W 15:57
PROVIDERS: ADMIT Family Medicine; ATTEND Family Medicine
PROC: 5A09457 Assistance with Respiratory Ventilation, 24-96 Consecutive Hours, Continuous Positive Airway Pressure (ICD-10-PCS; principal; 2017-11-02)
DX: I26.99 Other pulmonary embolism without acute cor pulmonale (principal); J18.9 Pneumonia, unspecified organism; I82.531 Chronic embolism and thrombosis of right popliteal vein; N03.2 Chronic nephritic syndrome with diffuse membranous glomerulonephritis; M35.1 Other overlap syndromes; D69.3 Immune thrombocytopenic purpura; D68.59 Other primary thrombophilia; K92.1 Melena; D63.8 Anemia in other chronic diseases classified elsewhere; G43.009 Migraine without aura, not intractable, without status migrainosus; G47.33 Obstructive sleep apnea (adult) (pediatric); K21.9 Gastro-esophageal reflux disease without esophagitis; K74.3 Primary biliary cirrhosis; D25.1 Intramural leiomyoma of uterus; M35.00 Sjogren syndrome, unspecified; E78.00 Pure hypercholesterolemia, unspecified; N18.9 Chronic kidney disease, unspecified; M46.96 Unspecified inflammatory spondylopathy, lumbar region; K64.4 Residual hemorrhoidal skin tags; F32.9 Major depressive disorder, single episode, unspecified; Z82.61 Family history of arthritis; Z83.3 Family history of diabetes mellitus; Z82.49 Family history of ischemic heart disease and other diseases of the circulatory system
CPT/HCPCS: 36415; 71045; 71275; 80053; 82140; 82550; 82553; 82607; 82728; 82746; 82803; 83540; 83550; 83605; 83880; 84484; 85025; 85045; 85379; 85610; 93005; 93010; 93970; 94660; 99285; J1756; J3490; J7050

== ENCOUNTER → 2017-12-17 | Outpatient (CLI) | payer OTHER ==
--- NOTE | 2017-12-17 13:47 | RADIOLOGY REPORT (SQ) ---
EXAM DESCRIPTION: VENOUS UNILATERAL LOWER COMPLETED DATE/TIME: 12/17/2017 1:23 pm REASON FOR STUDY: RT LEG SWELLING R60.9 EDEMA, UNSPECIFIED COMPARISON: None. TECHNIQUE: Dynamic and static fairbanks scale and color images acquired of the right leg venous system. S elected spectral images acquired with additional compression and augmentation maneuvers. The contrala teral common femoral vein and saphenofemoral junction were also imaged. Images stored on PACS. LIMITATIONS: None. FINDINGS: COMMON FEMORAL: Normal phasicity, compression and augmentation. No visualized echogenic ma terial on fairbanks scale. No defects on color images. FEMORAL: Distal echogenic nonocclusive thrombus. POPLITEAL: Echogenic nonocclusive thrombus. CALF VESSELS: Normal compression, augmentation. No visualized echogenic material on fairbanks scale. No de fects on color images. GSV and SSV: Normal compression, augmentation. No visualized echogenic material on fairbanks scale. No def ects on color images. ANY DEEP VENOUS INSUFFICIENCY: Not evaluated. ANY EVIDENCE OF POPLITEAL CYST: No. OTHER: No other significant finding. CONTRALATERAL COMMON FEMORAL VEIN AND SAPHENOFEMORAL JUNCTION: Normal phasicity, compression and augmentation. No visualized echogenic material on fairbanks scale. No de fects on color images. IMPRESSION: Chronic DVT distal femoral and popliteal vein. TECHNICAL DOCUMENTATION: JOB ID: [id number] [employer]- All Rights Reserved Reading location - IP/workstation name: [email or web address]
== END ==
LOC: SP 11:17
PROVIDERS: ATTEND Internal Medicine Medical Oncology
DX: R60.9 Edema, unspecified (principal)
CPT/HCPCS: 93971

== ENCOUNTER → 2018-03-25 | Outpatient (CLI) | payer OTHER ==
--- NOTE | 2018-03-25 08:46 | WOMENS IMAGING REPORT ---
EXAM DESCRIPTION: U/S ABDOMEN LIMITED COMPLETED DATE/TIME: 03/25/2018 8:05 am REASON FOR STUDY: K74.3 K74.3 PRIMARY BILIARY CIRRHOSIS Z12.31 ENCNTR SCREEN MAMMOGRAM FOR MALIGNA NT NEOPLASM OF YOANA COMPARISON: Abdominal ultrasound 09/03/2013, 11/04/2014, 10/13/2015, 03/05/2017 CT angio chest 11/01/2017 TECHNIQUE: Dynamic and static grayscale images acquired of the abdomen and recorded on PACS. Additio nal selected color Doppler and spectral images recorded. LIMITATIONS: None. FINDINGS: PANCREAS: Midline pancreas unremarkable LIVER: No masses. Echotexture normal. LIVER VASCULATURE: Normal directional flow of the main portal vein and hepatic veins. GALLBLADDER: No stones. Normal wall thickness. No pericholecystic fluid. ULTRASOUND-DETECTED SUTTON'S SIGN: Negative. INTRAHEPATIC DUCTS AND COMMON DUCT: CBD and intrahepatic ducts normal caliber. No filling defects. INFERIOR VENA CAVA: Normal flow. AORTA: No aneurysm. RIGHT KIDNEY: Normal size. Normal echogenicity. No solid or suspicious masses. No hydronephrosis. No calcifications. PERITONEAL AND RIGHT PLEURAL SPACE: No ascites or effusions. OTHER: No other significant findings. IMPRESSION: NORMAL RIGHT UPPER QUADRANT ULTRASOUND. TECHNICAL DOCUMENTATION: JOB ID: [id number] [employer]- All Rights Reserved Reading location - IP/workstation name: [email or web address]
--- NOTE | 2018-03-25 08:47 | WOMENS IMAGING REPORT ---
EXAM DESCRIPTION: BILAT SCREENING MAMMO W/CAD COMPLETED DATE/TIME: 03/25/2018 7:35 am REASON FOR STUDY: ROUTINE BILATERAL SCREENING;Z12.31 K74.3 PRIMARY BILIARY CIRRHOSIS Z12.31 ENCNTR SCREEN MAMMOGRAM FOR MALIGNANT NEOPLASM OF YOANA COMPARISON: Multiple since 2010 TECHNIQUE: Standard craniocaudal and mediolateral oblique views of each breast recorded using digita l acquisition. LIMITATIONS: None. FINDINGS: No masses, calcifications or architectural distortion. No areas of suspicion. Read with the assistance of CAD. .[facility] - R2 [employer] Version 1.3 .[facility] Imaging - R2 [employer] Version 1.3 .[facility] - R2 [employer] Version 2.4 .[facility] - R2 [employer] Version 2.4 .[facility] - R2 [employer] Version 9.2 IMPRESSION: NORMAL MAMMOGRAM. BIRADS 1. BREAST DENSITY: b. There are scattered areas of fibroglandular density. BIRAD: 1 NEGATIVE RECOMMENDATION: ROUTINE SCREENING COMMENT: The patient has been notified of the results by letter per SA requirements. Additional no tification policies are in place for contacting patient with suspicious or incomplete findings. Quality ID #[id number]: The [employer] [place] [employer] recommends an annual screening mammogram for women aged 40 years or over. This facility utilizes a reminder system to ensure that all patients receive reminder letters, and/or direct phone calls for appointments. This includes reminders for routine scr eening mammograms, diagnostic mammograms, or other Breast Imaging Interventions when appropriate. Th is patient will be placed in the appropriate reminder system. The [place] [employer] (ACR) has developed recommendations for screening MRI of the breast s in certain patient populations, to be used in conjunction with mammography. Breast MRI surveillanc e may be appropriate for women with more than 20% lifetime risk of developing breast cancer as deter mined by genetic testing, significant family history of the disease, or history of mantle radiation f or Hodgkins Disease. ACR Practice Guidelines 2008. TECHNICAL DOCUMENTATION: FINDING NUMBER: (1) ASSESSMENT: (1) JOB ID: [id number] [employer]- All Rights Reserved Reading location - IP/workstation name: [email or web address]
== END ==
LOC: WI 06:51
PROVIDERS: ATTEND Internal Medicine Gastroenterology
DX: K74.3 Primary biliary cirrhosis (principal); Z12.31 Encounter for screening mammogram for malignant neoplasm of breast
CPT/HCPCS: 76705; 77067

== ENCOUNTER 2018-05-14 02:33 | Inpatient (IN) | payer OTHER ==
[2018-05-14] MEDS ORDERED: ACETAMINOPHEN 325 MG TABLET PO ONE (03:12)
[2018-05-14] MEDS ORDERED: NORMAL SALINE 1000 ML 1,000 ML IV ONE (03:12)
[2018-05-14 03:40] LABS: VENOUS BLOOD BASE EXCESS 1.2 mmol/L; VENOUS BLOOD HCO3 25.6 mmol/L (20-32); VENOUS BLOOD PCO2 39.8 mmHg (35-63); VENOUS BLOOD PH 7.43 (7.30-7.42)
--- NOTE | 2018-05-14 03:42 | ER Document Report ---
ED General - General Chief Complaint: Shortness Of Breath Stated Complaint: SHORTNESS OF BREATH Time Seen by Provider: 05/14/18 03:05 Notes: Patient is a 48-year-old female that comes emergency department for chief complaint of shortness of breath, cough, and pain along the right side of her chest. She states that she has had sick symptoms for approximately 1 week, seen by primary care, started on azithromycin, completed her doses for this yesterday. She has not had the influenza vaccine. Past medical history includes DVT/PE, on Xarelto. Also reports a history of mixed connective tissue disorder, not on medication for this. She is not a smoker. She is currently on a menstrual cycle. TRAVEL OUTSIDE OF THE [place] IN LAST 30 DAYS: No - Related Data Allergies/Adverse Reactions: No Known Allergies Allergy (Verified 11/01/17 08:50) Past Medical History - General Information source: Patient - Social History Smoking Status: Never Smoker Frequency of alcohol use: None Drug Abuse: None Lives with: Family Family History: Reviewed & Not Pertinent - Past Medical History Cardiac Medical History: Reports: Hx DVT, Hx Hypercholesterolemia, Hx Pulmonary Embolism Pulmonary Medical History: Reports: Hx Sleep Apnea Neurological Medical History: Reports: Hx Migraine Renal/ Medical History: Denies: Hx Peritoneal Dialysis GI Medical History: Reports: Hx Gastroesophageal Reflux Disease Musculoskeletal Medical History: Reports Other - Mixed connective tissue disorder Psychiatric Medical History: Reports: Hx Depression Past Surgical History: Reports: Hx Section - x2 - Immunizations Hx Diphtheria, Pertussis, Tetanus Vaccination: Yes Review of Systems - Review of Systems Constitutional: See HPI EENT: No symptoms reported Cardiovascular: No symptoms reported Respiratory: See HPI Gastrointestinal: No symptoms reported Genitourinary: No symptoms reported Female Genitourinary: No symptoms reported Musculoskeletal: No symptoms reported Skin: No symptoms reported Hematologic/Lymphatic: No symptoms reported Neurological/Psychological: No symptoms reported Physical Exam - Vital signs Vitals: Resp BP Pulse Ox 25 H 154/78 H 97 05/14/18 02:54 05/14/18 02:54 05/14/18 02:54 - Notes Notes: GENERAL: Flushed, alert, only slightly ill-appearing HEAD: Normocephalic, atraumatic. EYES: Pupils equal, round, and reactive to light. Extraocular movements intact. ENT: Oral mucosa moist, tongue midline. Oropharynx unremarkable. Airway patent. Nares patent, no nasal septal hematoma, TM's intact. NECK: Full range of motion. Supple. Trachea midline. LUNGS: Rales present in the right lung in the lower james only. Otherwise clear lungs. No tachypnea or respiratory distress. HEART: Regular rate and rhythm. No murmur ABDOMEN: Soft, non-tender. Non-distended. Bowel sounds present in all 4 quadrants. GENITOURINARY: Deferred EXTREMITIES: Moves all 4 extremities spontaneously. No edema, normal radial and dorsalis pedis pulses bilaterally. No cyanosis. BACK: no cervical, thoracic, lumbar midline tenderness. No saddle anesthesia, normal distal neurovascular exam. NEUROLOGICAL: Alert and oriented x3. Normal speech. [cranial nerves II through XII grossly intact]. PSYCH: Normal affect, normal mood. SKIN: Flushed Course - Re-evaluation Re-evalutation: Patient somewhat ill-appearing, she has what sounds like pneumonia in the right lower lung james on exam. Has Alexandro completed azithromycin. After fever resolved, tachycardia also resolved. She is not hypotensive, hypoxic, and has no respiratory distress. X-ray showing right lower lobe pneumonia. CBC still pending, lab states they need to redraw because it was a bad sample. Chemistry unremarkable. Lactic acid is not elevated. Venous blood gas unremarkable. Urinalysis shows some blood but this is not specific given patient's vaginal bleeding. I discussed with patient current results, CBC is still taking a long time, patient stating she is hoping to leave. Because of her evaluation, lack of hypoxia, and vital signs we discussed this as a possibility and she was given Rocephin and doxycycline for potentially taking doxycycline at home with very close follow-up. CBC resulted, shows bandemia at 7 and shows severe thrombocytopenia at 8. Patient denies headache. Only bleeding source at this time is vaginal bleeding, nontender abdomen. Hemoglobin of 8.5. Normal MCV. Discussed with patient again, strongly recommended admission. Patient is now agreeable with this. Discussed with Dr. Malone, who recommends CAT scan of the head, hematology consult, admission. Discussed with Dr. Eduardo, hematology conveyor mechanic, he recommends multiple laboratory studies, 100 mg of Solu-Medrol now and daily, consult to be placed, admission to the hospital here. Called and spoke with Dr. Schuster, patient's provider, patient will be admitted to telemetry full admission. Patient does state agreement with this plan. - Vital Signs Vital signs: Temp Pulse Resp BP Pulse Ox 99.6 F 115 H 22 H 125/65 97 05/14/18 05:08 05/14/18 02:59 05/14/18 06:01 05/14/18 06:01 05/14/18 06:01 - Laboratory Result Diagrams: 05/14/18 05:23 05/14/18 03:23 Laboratory results interpreted by me: 05/14/18 05/14/18 05/14/18 03:23 03:23 03:51 RBC Hgb Hct Plt Count Band Neutrophils % Monocytes % (Manual) Immature Leukocytes % VBG pH 7.43 H Sodium 136.9 L Calcium 8.1 L Albumin 3.2 L Urine Blood LARGE H 05/14/18 05:23 RBC 2.91 L Hgb 8.5 L Hct 24.8 L Plt Count 8 L* Band Neutrophils % 7 H Monocytes % (Manual) 17 H Immature Leukocytes % 2 H VBG pH Sodium Calcium Albumin Urine Blood Discharge - Discharge Clinical Impression: Thrombocytopenia, Bandemia Pneumonia Qualifiers: Pneumonia type: due to unspecified organism Laterality: right Lung location: lower lobe of lung Qualified Code(s): J18.1 - Lobar pneumonia, unspecified organism Fever Qualifiers: Fever type: unspecified Qualified Code(s): R50.9 - Fever, unspecified Condition: Fair Disposition: ADMITTED INPATIENT Admitting Provider: Schuster Unit Admitted: Telemetry
[2018-05-14 03:56] LABS: ALANINE AMINOTRANSFERASE 11 U/L (9-52); ALBUMIN 3.2 g/dL (3.5-5.0); ALKALINE PHOSPHATASE 71 U/L (38-126); ANION GAP 7 (5-19); ASPARTATE AMINO TRANSFERASE 27 U/L (14-36); BILIRUBIN,DIRECT 0.3 mg/dL (0.0-0.4); BILIRUBIN,TOTAL 0.5 mg/dL (0.2-1.3); BLOOD UREA NITROGEN 10 mg/dL (7-20); CALCIUM 8.1 mg/dL (8.4-10.2); CARBON DIOXIDE 24 mmol/L (22-30); CHLORIDE 106 mmol/L (98-107); GLUCOSE 108 mg/dL (75-110); SODIUM 136.9 mmol/L (137-145); TOTAL PROTEIN 7.5 g/dL (6.3-8.2)
[2018-05-14 04:11] LABS: APPEARANCE,URINE SLIGHTLY-CLOUDY; BILIRUBIN,URINE NEGATIVE (NEGATIVE); GLUCOSE, URINE NEGATIVE (NEGATIVE); KETONES,URINE NEGATIVE (NEGATIVE); LEUKOCYTE ESTERASE,URINE NEGATIVE (NEGATIVE); NITRITE,URINE NEGATIVE (NEGATIVE); PROTEIN,URINE NEGATIVE (NEGATIVE); URINE SPECIFIC GRAVITY 1.013; UROBILINOGEN,URINE NEGATIVE mg/dL (<2.0)
[2018-05-14 04:12] LABS: COLOR,URINE PINK
[2018-05-14 04:13] LABS: A TYPE INFLUENZA AG NEGATIVE (NEGATIVE); B INFLUENZA AG NEGATIVE (NEGATIVE)
--- NOTE | 2018-05-14 04:58 | RADIOLOGY REPORT (SQ) ---
EXAM DESCRIPTION: XR CHEST 2 VIEWS COMPLETED DATE/TME: 05/14/2018 03:14 CLINICAL HISTORY: 48 years, Female, fever, abnormal right lower lung sounds COMPARISON: 03/17/2012 NUMBER OF VIEWS: Two TECHNIQUE: Two views of the chest LIMITATIONS: None. FINDINGS: There is a right lower lobe airspace opacity. The left lung is clear. The heart is normal in size. There is no pneumothorax or pleural effusion. The bones are unremarkable. IMPRESSION: Right lower lobe pneumonia copyright 2010 [employer]- All Rights Reserved
[2018-05-14] MEDS ORDERED: DOXYCYCLINE HYCLATE 100 MG TABLET PO ONE (05:07)
[2018-05-14] MEDS ORDERED: CEFTRIAXONE 1 GM/D5W RTU 1 GM/50 ML RTUPB IV ONE (05:07)
[2018-05-14 06:05] LABS: HEMATOCRIT 24.8 % (36.0-47.0); HEMOGLOBIN 8.5 g/dL (12.0-15.5); MEAN CORPUSCULAR HEMOGLOBIN 29.1 pg (27.0-33.4); MEAN CORPUSCULAR HGB CONC 34.1 g/dL (32.0-36.0); MEAN CORPUSCULAR VOLUME 85 fl (80-97); RED BLOOD COUNT 2.91 10^6/uL (3.72-5.28); RED CELL DISTRIBUTION WIDTH 13.7 % (11.5-14.0); WHITE BLOOD COUNT 5.1 10^3/uL (4.0-10.5)
[2018-05-14 06:12] LABS: PLATELET COUNT 8 10^3/uL (150-450)
[2018-05-14 06:16] LABS: ABSOLUTE MONOCYTES # (MANUAL) 0.9 10^3/uL (0.1-1.4); BAND NEUTROPHILS % (MANUAL) 7 % (3-5); BASOPHILS % (MANUAL) 0 % (0-2); EOSINOPHILS % (MANUAL) 4 % (0-6); HYPOCHROMASIA SLIGHT; IMMATURE MONONUCLEAR% (MANUAL) 2 % (0); LYMPHOCYTES % (MANUAL) 19 % (13-45); MONOCYTES % (MANUAL) 17 % (3-13); PLATELET LARGE PRESENT; POLYCHROMASIA 1+; SEGMENTED NEUTROPHILS % (MAN) 51 % (42-78); TOTAL CELLS COUNTED 100
[2018-05-14 06:17] LABS: PLATELET COMMENT ADEQUATE
[2018-05-14 06:58] LABS: INTERNATIONAL RATION (INR) 1.57; PROTHROMBIN TIME 19.5 SEC (11.4-15.4)
[2018-05-14 06:59] LABS: FIBRINOGEN 552 mg/dL (209-497); PARTIAL THROMBOPLASTIN TIME 57.2 SEC (23.5-35.8)
[2018-05-14] MEDS ORDERED: ACETAMINOPHEN 325 MG TABLET PO PRN (07:13)
[2018-05-14] MEDS: METHYLPREDNISOLONE INJ 125 MG/2 ML SDV IV SCH ×2 (07:18→10:22)
--- NOTE | 2018-05-14 07:51 | RADIOLOGY REPORT (SQ) ---
EXAM DESCRIPTION: CT HEAD WITHOUT IV CONTRAST COMPLETED DATE/TME: 05/14/2018 06:32 CLINICAL HISTORY: 48 years Female, very low platelets COMPARISON: None. TECHNIQUE: No contrast. Coronal and sagittal reformat. This exam was performed according to our departmental dose-optimization program, which includes automated exposure control, adjustment of the mA and/or kV according to patient size and/or use of iterative reconstruction technique. FINDINGS: No hemorrhage or infarct. No mass, mass effect, or midline shift. Moderate right maxillary mucosal thickening. Brain and extra-axial structures appear otherwise intact. IMPRESSION: No acute findings. Moderate right maxillary sinusitis.
--- NOTE | 2018-05-14 08:35 | PDOC CONSULTATION ---
Consultation Consult Date: 05/14/18 Attending physician:: MILA CAICEDO Consult reason:: ITP, known primary bili cirrhosis, mixed connective tissue disorder History of Present Illness Admission Date/PCP: 05/14/18 06:50 MILA CAICEDO MD Patient complains of: Thrombocytopenia History of Present Illness: ZANE PEREZ is a 48 year old female who is generally followed by Dr. Stafford as an outpatient, presents with thrombocytopenia, found to have a pneumonia, several day history of cough congestion productive sputum, chest x-ray consistent with a pneumonia, usually platelet counts are ranging from 100-150, here platelet count is dropped down to 8. She does have heavy menses and is actively menstruating. Hemoglobin is 8.5 with a ferritin of 10 consistent with iron deficiency anemia from menses blood loss. She does have a history of primary biliary cirrhosis, mixed connective tissue disorder, and history of ITP. She also has history of DVT and is on Xarelto lifelong. Past Medical History Cardiac Medical History: Reports: DVT, Hyperlipidema, Pulmonary Embolism Pulmonary Medical History: Reports: Sleep Apnea EENT Medical History: Reports: Nose - allergic rhinitis Neurological Medical History: Reports: Migraine Endocrine Medical History: Reports: None Renal/ Medical History: Reports: Chronic Kidney Disease Malignancy Medical History: Reports: None GI Medical History: Reports: Cirrhosis, Gastroesophageal Reflux Disease Musculoskeltal Medical History: Reports: Arthritis - low back, Other - Mixed connective tissue disorder Skin Medical History: Reports: None Psychiatric Medical History: Reports: Depression Traumatic Medical History: Reports: None Hematology: Reports: Anemia, Other - ITP Infectious Medical History: Reports: None Past Surgical History Past Surgical History: Reports: Section - x2, Other - hemorrhoids Social History Lives with: Family Smoking Status: Never Smoker Frequency of Alcohol Use: None Hx Recreational Drug Use: No Drugs: None Hx Prescription Drug Abuse: No - Advance Directive Resuscitation Status: Full Code Family History Family History: DM, Hypertension, Other - M ra Parental Family History Reviewed: Yes Children Family History Reviewed: Yes Sibling(s) Family History Reviewed.: Yes Medication/Allergy Home Medications: Ergocalciferol (Vitamin D2) [Drisdol 50,000 unit (1.25MG) Capsule] 50,000 unit PO TU@1000 11/02/17 Apixaban [Eliquis 5 mg Tablet] 10 mg PO Q12 #66 tablet 08/08/18 Ferrous Sulfate [Feosol 325 mg Tablet] 325 mg PO DAILY #90 tablet 11/05/17 Ursodiol [Actigall 300 mg Capsule] 300 mg PO BID #60 capsule 11/05/17 Allergies/Adverse Reactions: No Known Allergies Allergy (Verified 05/14/18 07:55) Review of Systems Constitutional: ABSENT: chills, fever(s), headache(s), weight gain, weight loss Eyes: ABSENT: visual disturbances Ears: ABSENT: hearing changes Cardiovascular: ABSENT: chest pain, dyspnea on exertion, edema, orthropnea, palpitations Respiratory: ABSENT: cough, hemoptysis Gastrointestinal: ABSENT: abdominal pain, constipation, diarrhea, hematemesis, hematochezia, nausea, vomiting Genitourinary: ABSENT: dysuria, hematuria Musculoskeletal: ABSENT: joint swelling Integumentary: ABSENT: rash, wounds Neurological: ABSENT: abnormal gait, abnormal speech, confusion, dizziness, focal weakness, syncope Psychiatric: ABSENT: anxiety, depression, homidical ideation, suicidal ideation Endocrine: ABSENT: cold intolerance, heat intolerance, polydipsia, polyuria Hematologic/Lymphatic: ABSENT: easy bleeding, easy bruising Physical Exam Vital Signs: Temp Pulse Resp BP Pulse Ox 99.6 F 115 H 20 125/65 97 05/14/18 05:08 05/14/18 02:59 05/14/18 08:00 05/14/18 06:01 05/14/18 08:00 Intake & Output 05/13/18 05/14/18 05/15/18 06:59 06:59 06:59 Intake Total 1050 Balance 1050 Weight 105.3 kg General appearance: PRESENT: no acute distress, well-developed, well-nourished Head exam: PRESENT: atraumatic, normocephalic Eye exam: PRESENT: conjunctiva pink, EOMI, PERRLA. ABSENT: scleral icterus Ear exam: PRESENT: normal external ear exam Mouth exam: PRESENT: moist, tongue midline Neck exam: ABSENT: carotid bruit, JVD, lymphadenopathy, thyromegaly Respiratory exam: PRESENT: clear to auscultation shaila. ABSENT: rales, rhonchi, wheezes Cardiovascular exam: PRESENT: RRR. ABSENT: diastolic murmur, rubs, systolic murmur Pulses: PRESENT: normal dorsalis pedis pul Vascular exam: PRESENT: normal capillary refill GI/Abdominal exam: PRESENT: normal bowel sounds, soft. ABSENT: distended, guarding, mass, organolmegaly, rebound, tenderness Rectal exam: PRESENT: deferred Extremities exam: PRESENT: full ROM. ABSENT: calf tenderness, clubbing, pedal edema Neurological exam: PRESENT: alert, awake, oriented to person, oriented to place, oriented to time, oriented to situation, CN II-XII grossly intact. ABSENT: motor sensory deficit Psychiatric exam: PRESENT: appropriate affect, normal mood. ABSENT: homicidal ideation, suicidal ideation Skin exam: PRESENT: dry, intact, warm. ABSENT: cyanosis, rash Results Laboratory Results: 05/14/18 05:23 05/14/18 03:23 05/14/18 05/14/18 05/14/18 03:23 03:23 03:23 WBC Cancelled RBC Cancelled Hgb Cancelled Hct Cancelled MCV Cancelled MCH Cancelled MCHC Cancelled RDW Cancelled Plt Count Cancelled Seg Neutrophils % Cancelled Lymphocytes % Cancelled Monocytes % Cancelled Eosinophils % Cancelled Basophils % Cancelled Absolute Neutrophils Cancelled Absolute Lymphocytes Cancelled Absolute Monocytes Cancelled Absolute Eosinophils Cancelled Absolute Basophils Cancelled VBG pH VBG pCO2 VBG HCO3 VBG Base Excess Sodium 136.9 L Potassium 4.0 Chloride 106 Carbon Dioxide 24 Anion Gap 7 BUN 10 Creatinine 0.73 Est GFR ( Amer) > 60 Est GFR (Non-Af Amer) > 60 Glucose 108 Lactic Acid 0.8 Calcium 8.1 L Total Bilirubin 0.5 AST 27 ALT 11 Alkaline Phosphatase 71 Total Protein 7.5 Albumin 3.2 L Vitamin B12 Urine Color Urine Appearance Urine pH Ur Specific Meredith Urine Protein Urine Glucose (UA) Urine Ketones Urine Blood Urine Nitrite Ur Leukocyte Esterase Urine WBC (Auto) Urine RBC (Auto) Blood Type Antibody Screen 05/14/18 05/14/18 05/14/18 03:23 03:23 03:51 WBC RBC Hgb Hct MCV MCH MCHC RDW Plt Count Seg Neutrophils % Lymphocytes % Monocytes % Eosinophils % Basophils % Absolute Neutrophils Absolute Lymphocytes Absolute Monocytes Absolute Eosinophils Absolute Basophils VBG pH 7.43 H VBG pCO2 39.8 VBG HCO3 25.6 VBG Base Excess 1.2 Sodium Potassium Chloride Carbon Dioxide Anion Gap BUN Creatinine Est GFR ( Amer) Est GFR (Non-Af Amer) Glucose Lactic Acid Calcium Total Bilirubin AST ALT Alkaline Phosphatase Total Protein Albumin Vitamin B12 595.0 Urine Color PINK Urine Appearance SLIGHTLY-CLOUDY Urine pH 7.0 Ur Specific Meredith 1.013 Urine Protein NEGATIVE Urine Glucose (UA) NEGATIVE Urine Ketones NEGATIVE Urine Blood LARGE H Urine Nitrite NEGATIVE Ur Leukocyte Esterase NEGATIVE Urine WBC (Auto) 2 Urine RBC (Auto) >182 Blood Type Antibody Screen 05/14/18 05/14/18 05:23 07:12 WBC 5.1 RBC 2.91 L Hgb 8.5 L Hct 24.8 L MCV 85 MCH 29.1 MCHC 34.1 RDW 13.7 Plt Count 8 L* Seg Neutrophils % Not Reportable Lymphocytes % Not Reportable Monocytes % Not Reportable Eosinophils % Not Reportable Basophils % Not Reportable Absolute Neutrophils Not Reportable Absolute Lymphocytes Not Reportable Absolute Monocytes Not Reportable Absolute Eosinophils Not Reportable Absolute Basophils Not Reportable VBG pH VBG pCO2 VBG HCO3 VBG Base Excess Sodium Potassium Chloride Carbon Dioxide Anion Gap BUN Creatinine Est GFR ( Amer) Est GFR (Non-Af Amer) Glucose Lactic Acid Calcium Total Bilirubin AST ALT Alkaline Phosphatase Total Protein Albumin Vitamin B12 Urine Color Urine Appearance Urine pH Ur Specific Meredith Urine Protein Urine Glucose (UA) Urine Ketones Urine Blood Urine Nitrite Ur Leukocyte Esterase Urine WBC (Auto) Urine RBC (Auto) Blood Type Cancelled Antibody Screen Cancelled Impressions: Chest X-Ray 05/14/18 03:14 IMPRESSION: Right lower lobe pneumonia copyright 2011 [employer]- All Rights Reserved Head CT 05/14/18 06:32 IMPRESSION: No acute findings. Moderate right maxillary sinusitis. Assessment & Plan - Diagnosis (1) Thrombocytopenia Is this a current diagnosis for this admission?: Yes Plan: Likely secondary to ITP but also may be contributory to primary biliary cirrhosis, INR is slightly elevated but she is on Xarelto so that is probably not DIC. Start high-dose steroids while she is being treated for the pneumonia. Platelet count return around in the next 24-48 hours if it is ITP related. Of note her platelet count done by Dr. Stafford she remembers to be over 100, and in the last couple months it has been as high as 200. (2) Iron deficiency anemia due to chronic blood loss Is this a current diagnosis for this admission?: Yes Plan: She does have iron deficiency anemia secondary to chronic blood loss, hemoglobin is 8.5 we will monitor. She would benefit from IV iron but is actively infected so we should wait until she is an outpatient to do this. If her hemoglobin below 7 will transfuse. (3) Chronic deep vein thrombosis of right popliteal vein Is this a current diagnosis for this admission?: Yes Plan: She will need to hold Xarelto until her platelet count gets above 30. Will monitor. - Time Time Spent: Greater than 70 Minutes - Inpatient Certification Based on my medical assessment, after consideration of the patient's comorbidities, presenting symptoms, or acuity I expect that the services needed warrant INPATIENT care.: Yes I certify that my determination is in accordance with my understanding of Medicare's requirements for reasonable and necessary INPATIENT services [42 CFR 412.3e].: Yes Medical Necessity: Need For Continuous Telemetry Monitoring, Need for IV Antibiotics, Risk of Complication if Not Cared For in Hospital
[2018-05-14] MEDS ORDERED: FERROUS SULFATE 325 MG TABLET PO SCH (10:00)
[2018-05-14] MEDS: FAMOTIDINE 20 MG TABLET PO SCH ×2 (10:27→21:32)
[2018-05-14] MEDS: URSODIOL 300 MG CAPSULE PO SCH ×2 (10:27→18:32)
--- NOTE | 2018-05-14 10:45 | EKG REPORT ---
SEVERITY:- OTHERWISE NORMAL ECG - SINUS TACHYCARDIA : Confirmed by: Mia Finley MD 14-May-2018 10:44:41
[2018-05-14 11:45] LABS: PATH REVIEW PATHOLOGIST REVIEWED
[2018-05-14] MEDS ORDERED: NORMAL SALINE 250 ML IV PRN (16:46)
--- NOTE | 2018-05-14 18:34 | PDOC H&P ---
History of Present Illness Admission Date/PCP: 05/14/18 06:50 MILA CAICEDO MD Patient complains of: cough History of Present Illness: ZANE PEREZ is a 48 year old female with 5d nasal congestion and 2d cough fever R pleuritic pain. In october she had a pe and has been on eliquis. She has multiple autoimmune diseases: primary biliary cirrhosis, membranous glomer ulonephritis, mixed connective tissue disease, lupus, sjrogrens, itp, and anemia of chronic disease. She is protein C & S deficient. In ER she had RLL infiltrate and platelets 8. Past Medical History Cardiac Medical History: Reports: DVT, Hyperlipidema, Pulmonary Embolism Pulmonary Medical History: Reports: Sleep Apnea EENT Medical History: Reports: Nose - allergic rhinitis Neurological Medical History: Reports: Migraine Endocrine Medical History: Reports: None Renal/ Medical History: Reports: Chronic Kidney Disease Malignancy Medical History: Reports: None GI Medical History: Reports: Cirrhosis, Gastroesophageal Reflux Disease Musculoskeltal Medical History: Reports: Arthritis - low back, Other - Mixed connective tissue disorder Skin Medical History: Reports: None Psychiatric Medical History: Reports: Depression Traumatic Medical History: Reports: None Hematology: Reports: Anemia Infectious Medical History: Reports: None Past Surgical History Past Surgical History: Reports: Section - x2, Other - hemorrhoids Social History Information Source: Office Lives with: Family Smoking Status: Never Smoker Frequency of Alcohol Use: None Hx Recreational Drug Use: No Drugs: None Hx Prescription Drug Abuse: No - Advance Directive Resuscitation Status: Full Code Family History Family History: DM, Hypertension, Other - M ra Parental Family History Reviewed: Yes Children Family History Reviewed: Yes Sibling(s) Family History Reviewed.: Yes Medication/Allergy Home Medications: Ergocalciferol (Vitamin D2) [Drisdol 50,000 unit (1.25MG) Capsule] 50,000 unit PO TU@1000 11/02/17 Ursodiol [Actigall 300 mg Capsule] 300 mg PO BID #60 capsule 11/05/17 Iron Fum,Ag/C/B12/Folic/Ca/Suc [Multigen Plus Caplet] 1 tab PO DAILY 05/14/18 Rivaroxaban [Xarelto] 20 mg PO DAILY 05/14/18 Allergies/Adverse Reactions: No Known Allergies Allergy (Verified 05/14/18 14:24) Review of Systems Constitutional: PRESENT: fever(s). ABSENT: headache(s), weight loss Nose, Mouth, and Throat: ABSENT: sore throat Cardiovascular: PRESENT: chest pain, dyspnea on exertion. ABSENT: orthropnea Respiratory: PRESENT: cough. ABSENT: sputum Gastrointestinal: PRESENT: dysphagia. ABSENT: abdominal pain, constipation, diarrhea, hematochezia, melena, vomiting Genitourinary: ABSENT: dysuria, hematuria Musculoskeletal: PRESENT: other - myalgia gone since Dr Stafford switched eliquis to xarelto Integumentary: ABSENT: rash Physical Exam Vital Signs: Temp Pulse Resp BP Pulse Ox 99.6 F 115 H 22 H 125/65 99 05/14/18 05:08 05/14/18 02:59 05/14/18 07:00 05/14/18 06:01 05/14/18 07:00 Intake & Output 05/12/18 05/13/18 05/14/18 07:59 07:59 07:59 Intake Total 1050 Balance 1050 Weight 232 lb 2.348 oz General appearance: PRESENT: no acute distress Mouth exam: PRESENT: moist, neck supple Respiratory exam: PRESENT: clear to auscultation shaila Cardiovascular exam: ABSENT: diastolic murmur, irregular rhythm, systolic murmur GI/Abdominal exam: ABSENT: mass, organolmegaly, tenderness Extremities exam: ABSENT: pedal edema Neurological exam: PRESENT: oriented to situation Psychiatric exam: PRESENT: appropriate affect Results Laboratory Results: 05/14/18 05:23 05/14/18 03:23 Abnormal - 24 hr 05/14/18 05/14/18 05/14/18 03:23 03:23 03:23 RBC Hgb Hct Plt Count Band Neutrophils % Monocytes % (Manual) Immature Leukocytes % PT 19.5 H APTT 57.2 H Fibrinogen 552 H VBG pH 7.43 H Sodium 136.9 L Calcium 8.1 L Albumin 3.2 L Urine Blood Crossmatch 05/14/18 05/14/18 05/14/18 03:51 05:23 08:53 RBC 2.91 L Hgb 8.5 L Hct 24.8 L Plt Count 8 L* Band Neutrophils % 7 H Monocytes % (Manual) 17 H Immature Leukocytes % 2 H PT APTT Fibrinogen VBG pH Sodium Calcium Albumin Urine Blood LARGE H Crossmatch See Detail Impressions: Chest X-Ray 05/14/18 03:14 IMPRESSION: Right lower lobe pneumonia copyright 2011 [email or web address]- All Rights Reserved Assessment & Plan - Diagnosis (1) Bronchopneumonia Is this a current diagnosis for this admission?: Yes Plan: ceftri. Already had azith (2) Immune thrombocytopenic purpura Is this a current diagnosis for this admission?: Yes Plan: heme has been consulted. Got solumedrol (3) Mixed connective tissue disease Is this a current diagnosis for this admission?: Yes (4) Anemia in other chronic diseases classified elsewhere Is this a current diagnosis for this admission?: Yes Plan: [id number]. Typed. 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 Is this a current diagnosis for this admission?: Yes (9) Membranous nephrosis Is this a current diagnosis for this admission?: Yes (10) Intramural leiomyoma of uterus Is this a current diagnosis for this admission?: Yes (11) Sicca syndrome Is this a current diagnosis for this admission?: Yes (12) Deficiency, protein C Is this a current diagnosis for this admission?: Yes (13) Other pulmonary embolism without acute cor pulmonale Qualifiers: Chronicity: acute Qualified Code(s): I26.99 - Other pulmonary embolism without acute cor pulmonale Is this a current diagnosis for this admission?: Yes Plan: stopped eliquis - Inpatient Certification Based on my medical assessment, after consideration of the patient's comorbidities, presenting symptoms, or acuity I expect that the services needed warrant INPATIENT care.: Yes I certify that my determination is in accordance with my understanding of Medicare's requirements for reasonable and necessary INPATIENT services [42 CFR 412.3e].: Yes Medical Necessity: Failure to Improve With Outpatient Therapy, Significant Comorbidiites Make Outpatient Treatment Too Risky, Need Close Monitoring Due to Risk of Patient Decompensation, Need For Continuous Telemetry Monitoring, Need for IV Antibiotics, Risk of Complication if Not Cared For in Hospital, Risk of Diagnosis Which Will Require Inpatient Eval/Care/Monitoring
[2018-05-15 04:51] LABS: ABSOLUTE LYMPHOCYTES (AUTO) 0.8 10^3/uL (0.5-4.7); ABSOLUTE MONOCYTES (AUTO) 0.7 10^3/uL (0.1-1.4); ABSOLUTE NEUT (AUTO) 3.2 10^3/uL (1.7-8.2); ABSOLUTE RETICS # 0.072 10^6/uL (0.028-0.122); BASOPHILS % (AUTO) 0.1 % (0-2); HEMATOCRIT 26.6 % (36.0-47.0); HEMOGLOBIN 9.2 g/dL (12.0-15.5); LYMPHOCYTES % (AUTO) 16.3 % (13-45); MEAN CORPUSCULAR HEMOGLOBIN 29.3 pg (27.0-33.4); MEAN CORPUSCULAR HGB CONC 34.7 g/dL (32.0-36.0); MEAN CORPUSCULAR VOLUME 84 fl (80-97); MONOCYTES % (AUTO) 15.1 % (3-13); RED BLOOD COUNT 3.14 10^6/uL (3.72-5.28); RED CELL DISTRIBUTION WIDTH 13.9 % (11.5-14.0); RETICULOCYTE COUNT (AUTO) 2.27 % (0.66-2.85); SEGMENTED NEUTROPHILS % (AUTO) 68.5 % (42-78); TOTAL CELLS COUNTED % (AUTO) 100 %; WHITE BLOOD COUNT 4.6 10^3/uL (4.0-10.5)
[2018-05-15 04:54] LABS: IRON(TIBC) 18.8 ug/dL (37-170)
[2018-05-15 05:07] LABS: PLATELET COUNT 14 10^3/uL (150-450)
--- NOTE | 2018-05-15 08:18 | PDOC PROGRESS REPORT ---
Subjective Progress Note for:: 05/15/18 Subjective:: Platelet count is better, no acute events overnight Reason For Visit: PNEUMONIA,THROMBOCYTOPENIA Physical Exam Vital Signs: Temp Pulse Resp BP Pulse Ox 97.5 F 64 17 117/51 L 97 05/15/18 04:01 05/15/18 04:01 05/15/18 04:01 05/15/18 04:01 05/15/18 04:01 Intake & Output 05/14/18 05/15/18 05/16/18 06:59 06:59 06:59 Intake Total 1050 1520 Balance 1050 1520 Weight 105.3 kg 105.6 kg General appearance: PRESENT: no acute distress, well-developed, well-nourished Head exam: PRESENT: atraumatic, normocephalic Eye exam: PRESENT: conjunctiva pink, EOMI, PERRLA. ABSENT: scleral icterus Ear exam: PRESENT: normal external ear exam Mouth exam: PRESENT: moist, tongue midline Neck exam: ABSENT: carotid bruit, JVD, lymphadenopathy, thyromegaly Respiratory exam: PRESENT: clear to auscultation shaila. ABSENT: rales, rhonchi, wheezes Cardiovascular exam: PRESENT: RRR. ABSENT: diastolic murmur, rubs, systolic murmur Pulses: PRESENT: normal dorsalis pedis pul Vascular exam: PRESENT: normal capillary refill GI/Abdominal exam: PRESENT: normal bowel sounds, soft. ABSENT: distended, guarding, mass, organolmegaly, rebound, tenderness Rectal exam: PRESENT: deferred Extremities exam: PRESENT: full ROM. ABSENT: calf tenderness, clubbing, pedal edema Neurological exam: PRESENT: alert, awake, oriented to person, oriented to place, oriented to time, oriented to situation, CN II-XII grossly intact. ABSENT: motor sensory deficit Psychiatric exam: PRESENT: appropriate affect, normal mood. ABSENT: homicidal ideation, suicidal ideation Skin exam: PRESENT: dry, intact, warm. ABSENT: cyanosis, rash Results Laboratory Results: 05/15/18 04:20 05/14/18 03:23 05/14/18 05/15/18 05/15/18 08:53 04:20 04:20 WBC 4.6 RBC 3.14 L Hgb 9.2 L Hct 26.6 L MCV 84 MCH 29.3 MCHC 34.7 RDW 13.9 Plt Count 14 L* Seg Neutrophils % 68.5 Lymphocytes % 16.3 Monocytes % 15.1 H Eosinophils % 0.0 Basophils % 0.1 Absolute Neutrophils 3.2 Absolute Lymphocytes 0.8 Absolute Monocytes 0.7 Absolute Eosinophils 0.0 Absolute Basophils 0.0 Retic Count (auto) 2.27 Absolute Retic 0.072 Iron 18.8 L TIBC 275 % Saturation 7 Ferritin 109.00 Vitamin B12 758.0 Folate 19.10 Blood Type O POSITIVE Antibody Screen TNP Impressions: Chest X-Ray 05/14/18 03:14 IMPRESSION: Right lower lobe pneumonia copyright 2010 [employer]- All Rights Reserved Head CT 05/14/18 06:32 IMPRESSION: No acute findings. Moderate right maxillary sinusitis. 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 But she will need to talk to her primary oncologist once platelet counts recover to decide whether lifelong anticoagulation is really needed - Time Time Spent with patient: 35 or more minutes - Inpatient Certification Based on my medical assessment, after consideration of the patient's comorbidities, presenting symptoms, or acuity I expect that the services needed warrant INPATIENT care.: Yes I certify that my determination is in accordance with my understanding of Medicare's requirements for reasonable and necessary INPATIENT services [42 CFR 412.3e].: Yes Medical Necessity: Need for IV Antibiotics, Risk of Complication if Not Cared For in Hospital
--- NOTE | 2018-05-15 08:35 | PDOC PROGRESS REPORT ---
Subjective Progress Note for:: 05/15/18 Subjective:: better wants home Reason For Visit: PNEUMONIA,THROMBOCYTOPENIA Physical Exam Vital Signs: Temp Pulse Resp BP Pulse Ox 97.5 F 64 17 117/51 L 97 05/15/18 04:01 05/15/18 04:01 05/15/18 04:01 05/15/18 04:01 05/15/18 04:01 Intake & Output 05/14/18 05/15/18 05/16/18 07:59 07:59 07:59 Intake Total 1050 1520 Balance 1050 1520 Weight 232 lb 2.348 oz 232 lb 12.93 oz General appearance: PRESENT: no acute distress Respiratory exam: PRESENT: clear to auscultation shaila Cardiovascular exam: ABSENT: diastolic murmur, irregular rhythm, systolic murmur GI/Abdominal exam: ABSENT: mass, organolmegaly, tenderness Extremities exam: ABSENT: pedal edema Neurological exam: PRESENT: oriented to situation Psychiatric exam: PRESENT: appropriate affect Results Laboratory Results: 05/15/18 04:20 05/14/18 03:23 05/14/18 05/15/18 05/15/18 08:53 04:20 04:20 WBC 4.6 RBC 3.14 L Hgb 9.2 L Hct 26.6 L MCV 84 MCH 29.3 MCHC 34.7 RDW 13.9 Plt Count 14 L* Seg Neutrophils % 68.5 Lymphocytes % 16.3 Monocytes % 15.1 H Eosinophils % 0.0 Basophils % 0.1 Absolute Neutrophils 3.2 Absolute Lymphocytes 0.8 Absolute Monocytes 0.7 Absolute Eosinophils 0.0 Absolute Basophils 0.0 Retic Count (auto) 2.27 Absolute Retic 0.072 Iron 18.8 L TIBC 275 % Saturation 7 Ferritin 109.00 Vitamin B12 758.0 Folate 19.10 Blood Type O POSITIVE Antibody Screen TNP Impressions: Chest X-Ray 05/14/18 03:14 IMPRESSION: Right lower lobe pneumonia copyright 2011 [employer]- All Rights Reserved Head CT 05/14/18 06:32 IMPRESSION: No acute findings. Moderate right maxillary sinusitis. Assessment & Plan - Diagnosis (1) Bronchopneumonia Is this a current diagnosis for this admission?: Yes Plan: afebrile. Continue ceftri. (2) Immune thrombocytopenic purpura Is this a current diagnosis for this admission?: Yes Plan: [id number]. Continue steroid. Rare blast on smear. Flow cytometry pending. 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 Is this a current diagnosis for this admission?: Yes (9) Membranous nephrosis Is this a current diagnosis for this admission?: Yes (10) Intramural leiomyoma of uterus Is this a current diagnosis for this admission?: Yes (11) Sicca syndrome Is this a current diagnosis for this admission?: Yes (12) Deficiency, protein C Is this a current diagnosis for this admission?: Yes Plan: ruled out on further testing (13) Other pulmonary embolism without acute cor pulmonale Qualifiers: Chronicity: acute Qualified Code(s): I26.99 - Other pulmonary embolism without acute cor pulmonale Is this a current diagnosis for this admission?: Yes
[2018-05-15] MEDS: METHYLPREDNISOLONE INJ 125 MG/2 ML SDV IV SCH (09:16)
[2018-05-15] MEDS: FAMOTIDINE 20 MG TABLET PO SCH ×2 (09:17→21:48)
[2018-05-15] MEDS: URSODIOL 300 MG CAPSULE PO SCH ×2 (09:17→20:00)
[2018-05-15] MEDS ORDERED: CEFTRIAXONE 1 GM/D5W RTU 1 GM/50 ML RTUPB IV SCH (10:00)
[2018-05-15] MEDS ORDERED: FERROUS SULFATE 325 MG TABLET PO SCH (12:00)
[2018-05-16 06:44] LABS: HEMATOCRIT 24.8 % (36.0-47.0); HEMOGLOBIN 8.5 g/dL (12.0-15.5); MEAN CORPUSCULAR HEMOGLOBIN 28.8 pg (27.0-33.4); MEAN CORPUSCULAR HGB CONC 34.1 g/dL (32.0-36.0); MEAN CORPUSCULAR VOLUME 84 fl (80-97); RED BLOOD COUNT 2.94 10^6/uL (3.72-5.28); RED CELL DISTRIBUTION WIDTH 13.7 % (11.5-14.0); WHITE BLOOD COUNT 5.2 10^3/uL (4.0-10.5)
[2018-05-16 07:07] LABS: PLATELET COUNT 53 10^3/uL (150-450)
[2018-05-16 07:17] LABS: ABSOLUTE LYMPHOCYTES# (MANUAL) 1.2 10^3/uL (0.5-4.7); ABSOLUTE MONOCYTES # (MANUAL) 0.5 10^3/uL (0.1-1.4); ABSOLUTE NEUTROPHILS# (MANUAL) 3.5 10^3/uL (1.7-8.2); BASOPHILS % (MANUAL) 0 % (0-2); EOSINOPHILS % (MANUAL) 1 % (0-6); LYMPHOCYTES % (MANUAL) 23 % (13-45); MONOCYTES % (MANUAL) 9 % (3-13); SEGMENTED NEUTROPHILS % (MAN) 67 % (42-78); TOTAL CELLS COUNTED 100
[2018-05-16 07:18] LABS: RBC MORPHOLOGY COMMENT NORMO-CYTIC/CHROMIC
[2018-05-16 07:19] LABS: PLATELET COMMENT DECREASED
--- NOTE | 2018-05-16 08:45 | PDOC DISCHARGE SUMMARY ---
General - Admit/Disc Date/PCP Admission Date/Primary Care Provider: 05/14/18 06:50 MILA CAICEDO MD Discharge Date: 05/16/18 - Discharge Diagnosis (1) Bronchopneumonia Is this a current diagnosis for this admission?: Yes (2) Immune thrombocytopenic purpura Is this a current diagnosis for this admission?: Yes (3) Mixed connective tissue disease Is this a current diagnosis for this admission?: Yes (4) Anemia in other chronic diseases classified elsewhere Is this a current diagnosis for this admission?: Yes (5) Migraine without aura and without status migrainosus, not intractable Is this a current diagnosis for this admission?: Yes (6) Obstructive sleep apnea Is this a current diagnosis for this admission?: Yes (7) Primary biliary cirrhosis Is this a current diagnosis for this admission?: Yes (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 Is this a current diagnosis for this admission?: Yes (9) Membranous nephrosis Is this a current diagnosis for this admission?: Yes (10) Intramural leiomyoma of uterus Is this a current diagnosis for this admission?: Yes (11) Sicca syndrome Is this a current diagnosis for this admission?: Yes (12) Deficiency, protein C Is this a current diagnosis for this admission?: Yes (13) Other pulmonary embolism without acute cor pulmonale Is this a current diagnosis for this admission?: Yes - Additional Information Resuscitation Status: Full Code Discharge Diet: Regular Discharge Activity: Activity As Tolerated Prescriptions: Cefdinir 600 mg PO DAILY 7 Days #14 capsule Prednisone [Deltasone 20 mg Tablet] 20 mg PO DAILY 7 Days #7 tablet Home Medications: Ergocalciferol (Vitamin D2) [Drisdol 50,000 unit (1.25MG) Capsule] 50,000 unit PO TU@1000 11/02/17 Ursodiol [Actigall 300 mg Capsule] 300 mg PO BID #60 capsule 11/05/17 Iron Fum,Ag/C/B12/Folic/Ca/Suc [Multigen Plus Caplet] 1 tab PO DAILY 05/14/18 Cefdinir 600 mg PO DAILY 7 Days #14 capsule 05/16/18 Prednisone [Deltasone 20 mg Tablet] 20 mg PO DAILY 7 Days #7 tablet 05/16/18 History of Present Illness Patient complains of: cough History of Present Illness: ZANE PEREZ is a 48 year old female with 5d nasal congestion and 2d cough fever R pleuritic pain. In october she had a pe and has been on eliquis. She has multiple autoimmune diseases: primary biliary cirrhosis, membranous glomerulonephritis, mixed connective tissue disease, lupus, sjrogrens, itp, and anemia of chronic disease. She is protein C & S deficient. In ER she had RLL infiltrate and platelets 8. Hospital Course Hospital Course: platelets up from 8 to 50s off xarelto on solumetrol 125mg. Blood cultures negative. Better on ceftri. Had out patient azithromycin. Rare blast. Flow cytometry pending. Physical Exam Vital Signs: Temp Pulse Resp BP Pulse Ox 97.8 F 69 15 141/60 H 100 05/15/18 23:45 05/16/18 07:00 05/15/18 23:45 05/15/18 23:45 05/15/18 23:45 Intake & Output 05/15/18 05/16/18 05/17/18 07:59 07:59 07:59 Intake Total 1520 2355 Balance 1520 2355 Weight 232 lb 12.93 oz 241 lb 6.499 oz General appearance: PRESENT: no acute distress Respiratory exam: PRESENT: clear to auscultation shaila Cardiovascular exam: ABSENT: diastolic murmur, irregular rhythm, systolic murmur GI/Abdominal exam: ABSENT: mass, organolmegaly, tenderness Extremities exam: ABSENT: pedal edema Neurological exam: PRESENT: oriented to situation Psychiatric exam: PRESENT: appropriate affect Results Laboratory Results: Labs- Last Values WBC 5.2 10^3/uL (4.0-10.5) 05/16/18 06:26 RBC 2.94 10^6/uL (3.72-5.28) L 05/16/18 06:26 Hgb 8.5 g/dL (12.0-15.5) L 05/16/18 06:26 Hct 24.8 % (36.0-47.0) L 05/16/18 06:26 MCV 84 fl (80-97) 05/16/18 06:26 MCH 28.8 pg (27.0-33.4) 05/16/18 06:26 MCHC 34.1 g/dL (32.0-36.0) 05/16/18 06:26 RDW 13.7 % (11.5-14.0) 05/16/18 06:26 Plt Count 53 10^3/uL (150-450) L D 05/16/18 06:26 Total Counted 100 05/16/18 06:26 Seg Neutrophils % Not Reportable 05/16/18 06:26 Seg Neuts % (Manual) 67 % (42-78) 05/16/18 06:26 Band Neutrophils % 7 % (3-5) H 05/14/18 05:23 Lymphocytes % Not Reportable 05/16/18 06:26 Lymphocytes % (Manual) 23 % (13-45) 05/16/18 06:26 Atypical Lymphs % Cancelled 05/14/18 03:23 Monocytes % Not Reportable 05/16/18 06:26 Monocytes % (Manual) 9 % (3-13) 05/16/18 06:26 Eosinophils % Not Reportable 05/16/18 06:26 Eosinophils % (Manual) 1 % (0-6) 05/16/18 06:26 Basophils % Not Reportable 05/16/18 06:26 Basophils % (Manual) 0 % (0-2) 05/16/18 06:26 Metamyelocytes % Cancelled 05/14/18 03:23 Myelocytes % Cancelled 05/14/18 03:23 Promyelocytes % Cancelled 05/14/18 03:23 Immature Leukocytes % 2 % (0) H 05/14/18 05:23 Absolute Neutrophils Not Reportable 05/16/18 06:26 Abs Neuts (Manual) 3.5 10^3/uL (1.7-8.2) 05/16/18 06:26 Absolute Lymphocytes Not Reportable 05/16/18 06:26 Abs Lymphs (Manual) 1.2 10^3/uL (0.5-4.7) 05/16/18 06:26 Absolute Monocytes Not Reportable 05/16/18 06:26 Abs Monocytes (Manual) 0.5 10^3/uL (0.1-1.4) 05/16/18 06:26 Absolute Eosinophils Not Reportable 05/16/18 06:26 Absolute Eos (Manual) 0.1 10^3/uL (0.0-0.6) 05/16/18 06:26 Absolute Basophils Not Reportable 05/16/18 06:26 Abs Basophils (Manual) 0.0 10^3/uL (0.0-0.2) 05/16/18 06:26 Nucleated RBCs Cancelled 05/14/18 03:23 Differential Comment Cancelled 05/14/18 03:23 Hypersegmented Neuts Cancelled 05/14/18 03:23 Smudge Cells Cancelled 05/14/18 03:23 Toxic Granulation Cancelled 05/14/18 03:23 Toxic Vacuolation Cancelled 05/14/18 03:23 Dohle Bodies Cancelled 05/14/18 03:23 Giorgi Rods Cancelled 05/14/18 03:23 WBC Morphology Comment Cancelled 05/14/18 03:23 Platelet Estimate Cancelled 05/14/18 03:23 Clumped Platelets Cancelled 05/14/18 03:23 Large Platelets PRESENT 05/14/18 05:23 Giant Platelets Cancelled 05/14/18 03:23 Platelet Comment DECREASED 05/16/18 06:26 Polychromasia 1+ 05/14/18 05:23 Hypochromasia SLIGHT 05/14/18 05:23 Poikilocytosis Cancelled 05/14/18 03:23 Basophilic Stippling Cancelled 05/14/18 03:23 Anisocytosis Cancelled 05/14/18 03:23 Microcytosis Cancelled 05/14/18 03:23 Macrocytosis Cancelled 05/14/18 03:23 Spherocytes Cancelled 05/14/18 03:23 Pappenheimer Bodies Cancelled 05/14/18 03:23 Sickle Cells Cancelled 05/14/18 03:23 Target Cells Cancelled 05/14/18 03:23 Tear Drop Cells Cancelled 05/14/18 03:23 Ovalocytes Cancelled 05/14/18 03:23 Stomatocytes Cancelled 05/14/18 03:23 Helmet Cells Cancelled 05/14/18 03:23 Jara-Burden Bodies Cancelled 05/14/18 03:23 Westby Cells Cancelled 05/14/18 03:23 Acanthocytes (Spur) Cancelled 05/14/18 03:23 Rouleaux Cancelled 05/14/18 03:23 Schistocytes Cancelled 05/14/18 03:23 RBC Morph Comment NORMO-CYTIC/CHROMIC 05/16/18 06:26 Retic Count (auto) 2.27 % (0.66-2.85) 05/15/18 04:20 Absolute Retic 0.072 10^6/uL (0.028-0.122) 05/15/18 04:20 PT 19.5 SEC (11.4-15.4) H 05/14/18 03:23 INR 1.57 05/14/18 03:23 APTT 57.2 SEC (23.5-35.8) H 05/14/18 03:23 Fibrinogen 552 mg/dL (209-497) H 05/14/18 03:23 VBG pH 7.43 (7.30-7.42) H 05/14/18 03:23 VBG pCO2 39.8 mmHg (35-63) 05/14/18 03:23 VBG HCO3 25.6 mmol/L (20-32) 05/14/18 03:23 VBG Base Excess 1.2 mmol/L 05/14/18 03:23 Sodium 136.9 mmol/L (137-145) L 05/14/18 03:23 Potassium 4.0 mmol/L (3.6-5.0) 05/14/18 03:23 Chloride 106 mmol/L (98-107) 05/14/18 03:23 Carbon Dioxide 24 mmol/L (22-30) 05/14/18 03:23 Anion Gap 7 (5-19) 05/14/18 03:23 BUN 10 mg/dL (7-20) 05/14/18 03:23 Creatinine 0.73 mg/dL (0.52-1.25) 05/14/18 03:23 Est GFR ( Amer) > 60 (>60) 05/14/18 03:23 Est GFR (Non-Af Amer) > 60 (>60) 05/14/18 03:23 Glucose 108 mg/dL (75-110) 05/14/18 03:23 Lactic Acid 0.8 mmol/L (0.7-2.1) 05/14/18 03:23 Calcium 8.1 mg/dL (8.4-10.2) L 05/14/18 03:23 Iron 18.8 ug/dL (37-170) L 05/15/18 04:20 TIBC 275 ug/dL (250-450) 05/15/18 04:20 % Saturation 7 % 05/15/18 04:20 Ferritin 109.00 ng/mL (11.1-264.0) 05/15/18 04:20 Total Bilirubin 0.5 mg/dL (0.2-1.3) 05/14/18 03:23 Direct Bilirubin 0.3 mg/dL (0.0-0.4) 05/14/18 03:23 Neonat Total Bilirubin Not Reportable 05/14/18 03:23 Neonat Direct Bilirubin Not Reportable 05/14/18 03:23 Neonat Indirect Bili Not Reportable 05/14/18 03:23 AST 27 U/L (14-36) 05/14/18 03:23 ALT 11 U/L (9-52) 05/14/18 03:23 Alkaline Phosphatase 71 U/L (38-126) 05/14/18 03:23 Total Protein 7.5 g/dL (6.3-8.2) 05/14/18 03:23 Albumin 3.2 g/dL (3.5-5.0) L 05/14/18 03:23 Vitamin B12 758.0 pg/mL (239-931) 05/15/18 04:20 Folate 19.10 ng/mL (>2.76) 05/15/18 04:20 Urine Color PINK 05/14/18 03:51 Urine Appearance SLIGHTLY-CLOUDY 05/14/18 03:51 Urine pH 7.0 (5.0-9.0) 05/14/18 03:51 Ur Specific [place] 1.013 05/14/18 03:51 Urine Protein NEGATIVE mg/dL (NEGATIVE) 05/14/18 03:51 Urine Glucose (UA) NEGATIVE mg/dL (NEGATIVE) 05/14/18 03:51 Urine Ketones NEGATIVE mg/dL (NEGATIVE) 05/14/18 03:51 Urine Blood LARGE (NEGATIVE) H 05/14/18 03:51 Urine Nitrite NEGATIVE (NEGATIVE) 05/14/18 03:51 Urine Bilirubin NEGATIVE (NEGATIVE) 05/14/18 03:51 Urine Urobilinogen NEGATIVE mg/dL (<2.0) 05/14/18 03:51 Ur Leukocyte Esterase NEGATIVE (NEGATIVE) 05/14/18 03:51 Urine WBC (Auto) 2 /HPF 05/14/18 03:51 Urine RBC (Auto) >182 /HPF 05/14/18 03:51 Squamous Epi Cells Auto <1 /HPF 05/14/18 03:51 Urine Mucus (Auto) RARE /LPF 05/14/18 03:51 Urine Ascorbic Acid NEGATIVE (NEGATIVE) 05/14/18 03:51 Influenza A (Rapid) NEGATIVE (NEGATIVE) 05/14/18 03:50 Influenza B (Rapid) NEGATIVE (NEGATIVE) 05/14/18 03:50 Slides for Path Review PATHOLOGIST REVIEWED 05/14/18 05:23 Blood Type O POSITIVE 05/14/18 08:53 Blood Type Confirm O POSITIVE 05/14/18 17:06 Antibody Screen TNP 05/14/18 08:53 Ab Screen Tube Method NEGATIVE 05/14/18 08:53 Crossmatch See Detail 05/14/18 08:53 Impressions: Chest X-Ray 05/14/18 03:14 IMPRESSION: Right lower lobe pneumonia copyright 2011 [employer]- All Rights Reserved Head CT 05/14/18 06:32 IMPRESSION: No acute findings. Moderate right maxillary sinusitis. Qualifiers - * PATIENT BEING DISCHARGED WITH ANY OF THE FOLLOWING DIAGNOSIS: No Plan Discharge Plan: 5d ov. [address] Dr Stafford
[2018-05-16 09:02] VITALS: BP 142/74
== END 2018-05-16 09:42 | disposition home or self-care (01) | DRG 194 ==
LOC: ER 02:33 → EH 06:50 → 5 17:26
PROVIDERS: ADMIT Family Medicine; ATTEND Family Medicine
DX: J18.0 Bronchopneumonia, unspecified organism (principal); D69.3 Immune thrombocytopenic purpura; I82.531 Chronic embolism and thrombosis of right popliteal vein; M35.1 Other overlap syndromes; N04.2 Nephrotic syndrome with diffuse membranous glomerulonephritis; M32.9 Systemic lupus erythematosus, unspecified; M35.00 Sjogren syndrome, unspecified; K74.3 Primary biliary cirrhosis; E78.00 Pure hypercholesterolemia, unspecified; G47.33 Obstructive sleep apnea (adult) (pediatric); D25.1 Intramural leiomyoma of uterus; D50.0 Iron deficiency anemia secondary to blood loss (chronic); G43.909 Migraine, unspecified, not intractable, without status migrainosus; K21.9 Gastro-esophageal reflux disease without esophagitis; Z86.711 Personal history of pulmonary embolism; Z79.01 Long term (current) use of anticoagulants
CPT/HCPCS: 36415; 70450; 71046; 80053; 81001; 82607; 82728; 82746; 82803; 83540; 83550; 83605; 85025; 85045; 85384; 85610; 85730; 86850; 86900; 86901; 86920; 87040; 87804; 88184; 88185; 93005; 93010; 96361; 96365; 99285; J0696; J2930; J3490; J7030

== ENCOUNTER → 2018-07-06 | Outpatient (CLI) | payer OTHER ==
--- NOTE | 2018-07-06 11:44 | XCELERA REPORT ---
[address] [address] Lower Extremity Venous Evaluation Procedure: Color flow and duplex imaging of the veins of the right lower extremity as well as the left Common Femoral vein. Right Sided Venous Evaluation Echogenic, great flow, normal size, distinct edges in the Popliteal vein. Otherwise normal vessel filling wall to wall, compression and augmentation as well as Colour flow down to the infrageniculate veins. Left Sided Venous Evaluation The left common femoral vein is fully compressible. Spontaneous and phasic flow is present in the left common femoral vein. Interpretation Summary Chronic DVT or venous scar in the right Popliteal vein. Name: ZANE PEREZ V Age: 48 yrs Gender: Female : 1970 Patient Status: Outpatient Patient Location: Study Date: 07/06/2018 10:32 AM Reason For Study: RLE PAIN EDEMA Ordering Physician: VIDYA BRAR Performed By: Tawana Saldana : VIDYA BRAR > Kaiser Santiago
== END ==
LOC: SP 09:59
PROVIDERS: ATTEND Internal Medicine Medical Oncology
DX: M79.604 Pain in right leg (principal); M79.89 Other specified soft tissue disorders
CPT/HCPCS: 93971

== ENCOUNTER → 2019-03-25 | Outpatient (CLI) | payer OTHER ==
--- NOTE | 2019-03-25 09:08 | WOMENS IMAGING REPORT ---
EXAM DESCRIPTION: U/S ABDOMEN LIMITED COMPLETED DATE/TIME: 03/25/2019 7:37 am REASON FOR STUDY: K74.3 PRIMARY BILIARY CIRRHOSIS K74.3 PRIMARY BILIARY CIRRHOSIS COMPARISON: 03/25/2018 TECHNIQUE: Dynamic and static grayscale images acquired of the abdomen and recorded on PACS. Additio eric selected color Doppler and spectral images recorded. LIMITATIONS: None. FINDINGS: PANCREAS: No masses. Visualized pancreatic duct normal caliber. LIVER: No masses. Echotexture normal. LIVER VASCULATURE: Normal directional flow of the main portal vein and hepatic veins. GALLBLADDER: No stones. Normal wall thickness. No pericholecystic fluid. ULTRASOUND-DETECTED SUTTON'S SIGN: Negative. INTRAHEPATIC DUCTS AND COMMON DUCT: CBD and intrahepatic ducts normal caliber. No filling defects. INFERIOR VENA CAVA: Normal flow. AORTA: No aneurysm. RIGHT KIDNEY: Normal size measuring 12.3 cm. Normal echogenicity. No solid or suspicious masses. No hydronephrosis. No calcifications. PERITONEAL AND RIGHT PLEURAL SPACE: No ascites or effusions. OTHER: No other significant findings. IMPRESSION: NORMAL RIGHT UPPER QUADRANT ULTRASOUND. TECHNICAL DOCUMENTATION: JOB ID: [id number] [employer]- All Rights Reserved Reading location - IP/workstation name: [email or web address]
== END ==
LOC: WI 07:00
PROVIDERS: ATTEND Internal Medicine Gastroenterology
DX: K74.3 Primary biliary cirrhosis (principal)
CPT/HCPCS: 76705

== ENCOUNTER → 2019-09-27 | Outpatient (CLI) | payer OTHER ==
--- NOTE | 2019-09-27 16:19 | RADIOLOGY REPORT (SQ) ---
EXAM DESCRIPTION: VENOUS UNILATERAL LOWER IMAGES COMPLETED DATE/TIME: 09/27/2019 4:06 pm REASON FOR STUDY: RLE PAIN/SWELLING I83.213 VARICOS VN OF R LOW EXTREM W ULC OF ANKLE AND INFLAM COMPARISON: 07/06/2018 TECHNIQUE: Dynamic and static fairbanks scale and color images acquired of the right leg venous system. S elected spectral images acquired with additional compression and augmentation maneuvers. The contrala teral common femoral vein and saphenofemoral junction were also imaged. Images stored on PACS. LIMITATIONS: None. FINDINGS: COMMON FEMORAL: Normal phasicity, compression and augmentation. No visualized echogenic ma terial on fairbanks scale. No defects on color images. FEMORAL: Normal compression and augmentation. No visualized echogenic material on fairbanks scale. No defe cts on color images. POPLITEAL: Chronic nonocclusive DVT in the popliteal vein. CALF VESSELS: Normal compression, augmentation. No visualized echogenic material on fairbanks scale. No de fects on color images. GSV and SSV: Normal compression, augmentation. No visualized echogenic material on fairbanks scale. No def ects on color images. ANY DEEP VENOUS INSUFFICIENCY: Not evaluated. ANY EVIDENCE OF POPLITEAL CYST: No. OTHER: No other significant finding. CONTRALATERAL COMMON FEMORAL VEIN AND SAPHENOFEMORAL JUNCTION: Normal phasicity, compression and augmentation. No visualized echogenic material on fairbanks scale. No de fects on color images. IMPRESSION: Chronic nonocclusive DVT in the right popliteal vein. This is stable from 2019. TECHNICAL DOCUMENTATION: JOB ID: [id number] 2010 [employer]- All Rights Reserved Reading location - IP/workstation name: [email or web address]
--- NOTE | 2019-09-27 16:39 | RADIOLOGY REPORT (SQ) ---
EXAM DESCRIPTION: ARTERIAL LOWER EXTREM UNILAT IMAGES COMPLETED DATE/TIME: 09/27/2019 4:07 pm REASON FOR STUDY: RLE PAIN/SWELLING I83.213 VARICOS VN OF R LOW EXTREM W ULC OF ANKLE AND INFLAM COMPARISON: None. TECHNIQUE: Dynamic and static fairbanks scale and color images acquired of the right lower extremity francesca justine. Additional selected spectral images recorded. ABIs recorded. LIMITATIONS: None. FINDINGS: RIGHT LEG: INFLOW ARTERIES: Normal, no obstruction evident. FEMORAL ARTERIES:Multiphasic waveforms. Normal, no velocity elevation to suggest focal stenosis. Norm al color Doppler evaluation. No aneurysm. POPLITEAL ARTERY:Multiphasic waveforms. Normal, no velocity elevation to suggest focal stenosis. Norm al color Doppler evaluation. No aneurysm. PATENT TIBIOPERONEAL TRUNK AND 3 VESSEL RUNOFF: Tibioperoneal trunk is patent. There is 2 vessel run off to the foot via the anterior tibial and posterior tibial artery. TBI: Not performed. OTHER: No other significant finding. IMPRESSION: Normal right lower extremity arterial duplex. COMMENT: [facility] NORMAL: Greater than 1.0 MINIMAL DISEASE: 0.9 to 1.0 CLAUDICATION: 0.5 to 0.9 SEVERE ARTERIAL DISEASE: Less than 0.5 [facility] NORMAL: Greater than 1.0 (1.2 If Heavy Calcifications) NORMAL TO MILD ISCHEMIA: 0.8 to 1.0 MODERATE ISCHEMIA: 0.4 to 0.8 SEVERE ISCHEMIA: Less than 0.4 TECHNICAL DOCUMENTATION: JOB ID: [id number] 2010 [employer]- All Rights Reserved Reading location - IP/workstation name: [email or web address]
== END ==
LOC: SP 13:44
PROVIDERS: ATTEND Family Medicine
DX: I83.213 Varicose veins of right lower extremity with both ulcer of ankle and inflammation (principal); I82.531 Chronic embolism and thrombosis of right popliteal vein
CPT/HCPCS: 93926; 93971

== ENCOUNTER → 2019-12-20 | Outpatient (CLI) | payer OTHER ==
[2019-12-20 16:12] LABS: ABSOLUTE LYMPHOCYTES (AUTO) 0.7 10^3/uL (0.5-4.7); ABSOLUTE MONOCYTES (AUTO) 0.5 10^3/uL (0.1-1.4); ABSOLUTE NEUT (AUTO) 5.6 10^3/uL (1.7-8.2); BASOPHILS % (AUTO) 0.5 % (0-2); EOSINOPHILS % (AUTO) 0.3 % (0-6); HEMATOCRIT 34.1 % (36.0-47.0); HEMOGLOBIN 11.9 g/dL (12.0-15.5); LYMPHOCYTES % (AUTO) 10.7 % (13-45); MEAN CORPUSCULAR HGB CONC 34.9 g/dL (32.0-36.0); MEAN CORPUSCULAR VOLUME 92 fl (80-97); MONOCYTES % (AUTO) 7.1 % (3-13); RED BLOOD COUNT 3.72 10^6/uL (3.72-5.28); RED CELL DISTRIBUTION WIDTH 13.9 % (11.5-14.0); SEGMENTED NEUTROPHILS % (AUTO) 81.4 % (42-78); TOTAL CELLS COUNTED % (AUTO) 100 %; WHITE BLOOD COUNT 6.9 10^3/uL (4.0-10.5)
[2019-12-20 16:35] LABS: ALBUMIN 3.5 g/dL (3.5-5.0); ALKALINE PHOSPHATASE 101 U/L (38-126); ASPARTATE AMINO TRANSFERASE 27 U/L (14-36); BILIRUBIN,DIRECT 0.2 mg/dL (0.0-0.4); BILIRUBIN,TOTAL 0.3 mg/dL (0.2-1.3); BLOOD UREA NITROGEN 16 mg/dL (7-20); CALCIUM 8.8 mg/dL (8.4-10.2); GLUCOSE 92 mg/dL (75-110); POTASSIUM 3.9 mmol/L (3.6-5.0); TOTAL PROTEIN 7.9 g/dL (6.3-8.2)
[2019-12-20 16:37] LABS: PLATELET COUNT 59 10^3/uL (150-450)
[2019-12-20 16:38] LABS: ANION GAP 5 (5-19); CARBON DIOXIDE 29 mmol/L (22-30); CHLORIDE 105 mmol/L (98-107)
[2019-12-20 16:40] LABS: C-REACTIVE PROTEIN < 5.0 mg/L (<10.0)
[2019-12-20 17:03] LABS: ERYTHROCYTE SEDIMENTATION RATE 64 mm/hr (0-30)
== END ==
LOC: OD 14:17
PROVIDERS: ATTEND Nurse Practitioner Family
DX: L97.212 Non-pressure chronic ulcer of right calf with fat layer exposed (principal)
CPT/HCPCS: 36415; 80053; 85025; 85652; 86140

== ENCOUNTER → 2020-03-20 | Outpatient (CLI) | payer OTHER ==
--- NOTE | 2020-03-20 08:47 | WOMENS IMAGING REPORT ---
EXAM DESCRIPTION: U/S ABDOMEN LIMITED IMAGES COMPLETED DATE/TIME: 03/20/2020 8:29 am REASON FOR STUDY: K74.3 PRIMARY BILIARY CIRRHOSIS K74.3 PRIMARY BILIARY CIRRHOSIS Z12.31 ENCNTR SC REEN MAMMOGRAM FOR MALIGNANT NEOPLASM OF YOANA COMPARISON: Ultrasound of the abdomen from 03/25/2019. TECHNIQUE: Dynamic and static grayscale images acquired of the abdomen and recorded on PACS. Additio nal selected color Doppler and spectral images recorded. LIMITATIONS: None. FINDINGS: PANCREAS: The visualized portions of the pancreatic head appear normal. The pancreatic magaly dy and tail are obscured by overlying bowel. LIVER: Normal contour and echotexture of the liver. There is no hepatic mass. LIVER VASCULATURE: Normal hepatopetal directional flow in the main portal vein. The hepatic veins ar e patent. GALLBLADDER: The gallbladder wall measures 1.9 mm in thickness. There is no cholelithiasis, sludge o r pericholecystic fluid. ULTRASOUND-DETECTED SUTTON'S SIGN: Negative. INTRAHEPATIC DUCTS AND COMMON DUCT: The common bile duct measures 4.8 mm in diameter. There is no di latation of the intrahepatic ducts. INFERIOR VENA CAVA: Patent. AORTA: No aneurysm. RIGHT KIDNEY: The right kidney measures 12.7 cm in length. There is no hydronephrosis. PERITONEAL AND RIGHT PLEURAL SPACE: No ascites or effusions. OTHER: No other findings. IMPRESSION: The pancreatic body and tail are obscured by overlying bowel. Otherwise normal ultrasou nd of the right upper quadrant. TECHNICAL DOCUMENTATION: JOB ID: [id number] 2010 [employer]- All Rights Reserved Reading location - IP/workstation name: [email or web address]
--- NOTE | 2020-03-20 08:55 | WOMENS IMAGING REPORT ---
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 Read with the assistance of CAD. .[facility] - [employer] Version 9.2 LIMITATIONS: None. FINDINGS: RIGHT BREAST MASSES: No suspicious masses. CALCIFICATIONS: No new or suspicious calcifications. ARCHITECTURAL DISTORTION: None. ASYMMETRY: None noted. OTHER: No other significant findings. LEFT BREAST MASSES: No suspicious masses. CALCIFICATIONS: No new or suspicious calcifications. ARCHITECTURAL DISTORTION: None. ASYMMETRY: There is a focal asymmetry in the upper outer left breast, approximately 2-3 o'clock posit ion 4-5 cm from the nipple. OTHER: No other significant findings. IMPRESSION: Possible focal asymmetry left upper outer breast. Further evaluation with diagnostic ma mmogram and possible ultrasound recommended. 0 Incomplete: Needs Additional Imaging Evaluation and/or prior Mammograms for Comparison. BREAST DENSITY: b. There are scattered areas of fibroglandular density. BIRAD: ASSESSMENT: 0 Incomplete: Needs Additional Imaging Evaluation and/or prior Mammograms for C omparison. RECOMMENDATION: RECOMMENDED FOLLOW-UP: Left breast diagnostic mammogram and possible ultrasound. ADDITIONAL RECOMMENDATION- No additional recommendations. The patient will be contacted for additional imaging. COMMENT: The patient has been notified of the results by letter per MQSA requirements. Additional no tification policies are in place for contacting patient with suspicious or incomplete findings. Quality ID #225: The [employer] recommends an annual screening mammogram for women aged 40 years or over. This facility utilizes a reminder system to ensure that all patients receive reminder letters, and/or direct phone calls for appointments. This includes reminders for routine scr eening mammograms, diagnostic mammograms, or other Breast Imaging Interventions when appropriate. Th is patient will be placed in the appropriate reminder system. TECHNICAL DOCUMENTATION: FINDING NUMBER: (1) ASSESSMENT: (1) JOB ID: [id number] 2010 [employer]- All Rights Reserved Reading location - IP/workstation name: [email or web address]
== END ==
LOC: WI 07:33
PROVIDERS: ATTEND Internal Medicine Gastroenterology
DX: Z12.31 Encounter for screening mammogram for malignant neoplasm of breast (principal); K74.3 Primary biliary cirrhosis; N64.89 Other specified disorders of breast
CPT/HCPCS: 76705; 77063; 77067

== ENCOUNTER → 2020-04-06 | Outpatient (CLI) | payer OTHER ==
--- NOTE | 2020-04-06 08:56 | WOMENS IMAGING REPORT ---
EXAM DESCRIPTION: LEFT DIAGNOSTIC MAMMO W/CAD IMAGES COMPLETED DATE/TIME: 04/06/2020 8:24 am REASON FOR STUDY: N63.21 UNSPECIFIED LUMP IN THE LEFT BREAST, UPPER OUTER QUADRANT N63.21 UNSPECIFI ED LUMP IN THE LEFT BREAST, UPPER OUTER QUAD COMPARISON: 03/20/2020 EXAM PARAMETERS: True lateral, exaggerated CC and cone compression views. LIMITATIONS: None. FINDINGS: BREAST LATERALITY: left MASSES: No suspicious masses. CALCIFICATIONS: No new or suspicious calcifications. ARCHITECTURAL DISTORTION: None. ASYMMETRY: None noted. OTHER: No other significant findings. IMPRESSION: No evidence of malignancy. BREAST DENSITY: b. There are scattered areas of fibroglandular density. BIRAD: ASSESSMENT: 1 Negative. RECOMMENDATION: RECOMMENDED FOLLOW UP: Birads 1 or 2: The patient should resume routine screening . SPECIFIC INTERVENTION/IMAGING/CONSULTATION RECOMMENDED:No additional intervention/ imaging/consultati on needed at this time. COMMUNICATION:The negative/benign results were communicated to the patient. COMMENT: The patient has been notified of the results by letter per [place] requirements. Additional no tification policies are in place for contacting patient with suspicious or incomplete findings. Quality ID #225: The [employer] recommends an annual screening mammogram for women aged 40 years or over. This facility utilizes a reminder system to ensure that all patients receive reminder letters, and/or direct phone calls for appointments. This includes reminders for routine scr eening mammograms, diagnostic mammograms, or other Breast Imaging Interventions when appropriate. Th is patient will be placed in the appropriate reminder system. TECHNICAL DOCUMENTATION: FINDING NUMBER: (1) ASSESSMENT: (1) JOB ID: [id number] 2010 [employer]- All Rights Reserved Reading location - IP/workstation name: [email or web address]
== END ==
LOC: WI 08:00
PROVIDERS: ATTEND Family Medicine
DX: N63.21 Unspecified lump in the left breast, upper outer quadrant (principal)
CPT/HCPCS: 77065